=== PATIENT | female | born 1955 | race Caucasian/White ===

== ENCOUNTER 2023-05-12 12:49 | Outpatient (OUT) | payer MEDICARE, SELFPAY ==
--- NOTE | 2023-05-12 12:52 | MM_ITS ---
Patient Name: MARIBEL BLOCK MR#: [id number] : 1955 Exam Date: 05/12/2023 Ordering Doctor: DR JOSSELYN GUDINO M.D. RADIOLOGY REPORT PROCEDURE: MM TOMOSYNTHESIS SCREENING BI COMPARISON: MG MAMM LT DIAG FU, 10/30/2021. MG MAMM DIAGNOSTIC 3D PERRY CAD, 05/10/2022. INDICATIONS: Screening Calculator Name NCI Breast Cancer Risk Assessment Tool 5 Year Breast Cancer Risk 2.60% Lifetime Breast Cancer Risk 8.70% Personal Breast Cancer No Personal Ovarian Cancer No Treatments None Family Cancers Cousin-maternal with breast cancer at age 61; Mother with lung cancer at age 78; Father with lung cancer at age 52; Sister with thyroid cancer at age 38. LOCATION: [facility] BREAST COMPOSITION: Scattered areas fibroglandular density. FINDINGS: DIAGNOSTIC CATEGORY 2--BENIGN FINDING. NO CHANGE FROM COMPARISON. Scattered benign-appearing nodules are present. Scattered benign-appearing calcifications are present. Scattered benign-appearing lymph nodes are present. RIGHT BREAST: No significant suspicious finding. LEFT BREAST: No significant suspicious finding. Stable micro clip marker upper outer quadrant, mid breast RECOMMENDATIONS: ROUTINE MAMMOGRAM AND CLINICAL EVALUATION IN 12 MONTHS. PLEASE NOTE: A NORMAL MAMMOGRAM DOES NOT EXCLUDE THE POSSIBILITY OF BREAST CANCER. A CLINICALLY SUSPICIOUS PALPABLE LUMP SHOULD BE BIOPSIED. Dictated by: Alfa Lewis MD on 05/12/2023 at 14:06 Approved by: Alfa Lewis MD on 05/12/2023 at 14:07
--- NOTE | 2023-05-12 13:11 | CT_ITS ---
[address] [address] Patient Name: MARIBEL BLOCK MRN: [id number] date: 1955 Sex: F Assigned Patient Location: MAMMO Current Patient Location: CT Accession/Order Number: [id number] Exam Date: 05/12/2023 13:12 Report Date: 05/12/2023 14:05 At the request of: JOSSELYN GUDINO Procedure: CT lung screening low-dose EXAMINATION: CT lung screening low-dose HISTORY: Former Smoker Z87.891 COMPARISON: 10/20/2021 TECHNIQUE: Axial, Coronal, and Sagittal images were created without the administration of IV contrast material. Dose reduction techniques were achieved by using automated exposure control and/or adjustment of mA and/or kV according to patient size and/or use of iterative reconstruction technique. FINDINGS: LUNGS: No visible pulmonary disease. PLEURA: No mass, effusion, or pneumothorax. VASCULATURE: No abnormality. ANJANA: No mass or pathologic adenopathy. MEDIASTINUM: No mass or pathologic adenopathy. CARDIAC: No enlargement, pericardial thickening, or significant calcification. CORONARY ARTERIES: AORTA: No aneurysm or dissection. CHEST WALL: No mass or axillary adenopathy BONES: No bone lesion or fracture. LIMITED ABDOMEN: No suspicious findings. Limited images of the upper abdomen. Surgical clips from cholecystectomy OTHER: Negative. CT/CT lung screening low-dose IMPRESSION: LUNG SCREENING: Lung-RADS Category 1 Negative. No nodules and definitely benign nodules. Continue annual screening with LDCT in 12 months. Electronically authenticated by: JAN CARPENTER Date: 05/12/2023 14:05
== END 2023-05-12 12:50 | disposition home or self-care (01) ==
PROVIDERS: PCP Family Medicine; Visit Provider Family Medicine
DX: Z12.31 Encounter for screening mammogram for malignant neoplasm of breast (principal); Z87.891 Personal history of nicotine dependence; Z80.3 Family history of malignant neoplasm of breast; Z80.1 Family history of malignant neoplasm of trachea, bronchus and lung; Z80.8 Family history of malignant neoplasm of other organs or systems
CPT/HCPCS: 71271; 77063; 77067

== ENCOUNTER 2024-05-28 12:49 | Outpatient (OUT) | payer MEDICARE, SELFPAY ==
--- NOTE | 2024-05-28 13:08 | MM_ITS ---
Patient Name: MARIBEL BLOCK MR#: [id number] : 1955 Exam Date: 05/28/2024 Ordering Doctor: MRS. SHEREEN CARBAJAL [employer] RADIOLOGY REPORT PROCEDURE: MM TOMOSYNTHESIS SCREENING BI COMPARISON: MM TOMOSYNTHESIS SCREENING BI, 05/12/2023. MG MAMM DIAGNOSTIC 3D PERRY CAD, 05/10/2022. MG MAMM PERRY SCRN W CAD DIG, 09/25/1998. INDICATIONS: Screening for malignant neoplasm Calculator Name NCI Breast Cancer Risk Assessment Tool 5 Year Breast Cancer Risk 2.60% Lifetime Breast Cancer Risk 8.30% Personal Breast Cancer No Personal Ovarian Cancer No Treatments None Family Cancers Cousin-maternal with breast cancer at age 61; Mother with lung cancer at age 78; Father with lung cancer at age 52; Sister with thyroid cancer at age 38. LOCATION: [facility] BREAST COMPOSITION: There are scattered areas of fibroglandular density. FINDINGS: DIAGNOSTIC CATEGORY 1--NEGATIVE. RIGHT BREAST: No significant suspicious finding. LEFT BREAST: No significant suspicious finding. RECOMMENDATIONS: ROUTINE MAMMOGRAM AND CLINICAL EVALUATION IN 12 MONTHS. PLEASE NOTE: A NORMAL MAMMOGRAM DOES NOT EXCLUDE THE POSSIBILITY OF BREAST CANCER. A CLINICALLY SUSPICIOUS PALPABLE LUMP SHOULD BE BIOPSIED. Dictated by: Rey Li DO on 05/28/2024 at 15:43 Approved by: Rey Li DO on 05/28/2024 at 15:47
--- NOTE | 2024-05-28 13:12 | CT_ITS ---
The [address] [address] Patient Name: MARIBEL BLOCK MRN: [id number] date: 1955 Sex: F Assigned Patient Location: CT Current Patient Location: CT Accession/Order Number: [id number] Exam Date: 05/28/2024 14:26 Report Date: 05/28/2024 14:44 At the request of: SHEREEN CARBAJAL Procedure: CT lung screening low-dose LOW-DOSE SCREENING CHEST CT WITHOUT CONTRAST COMPARISON: 05/12/2023 CLINICAL DATA: Former smoker Spiral axial unenhanced low-dose images were obtained through the chest. Images were reviewed using both narrow and wide window settings. This CT exam was performed using one or more following dose reduction techniques: Automated exposure control, adjustment of the mA and/or kV according to patient size, or use of iterative reconstruction technique. The heart is within normal limits for size. No pericardial effusion is present. Minor coronary artery disease is seen. There is no aortic aneurysm. There is small amount of plaque at the aortic arch and descending aorta. There are a few small nonpathologic mediastinal lymph nodes. The left thyroid lobe is either asymmetrically small or surgically absent. Endplate spurring is present at the spine. There is minimal linear scarring or atelectasis at the lower lungs. No focal consolidation, pleural effusion or pneumothorax is seen. Scattered tiny nodular densities measuring under 4 mm in size are again seen. No developing pulmonary nodularity is noted. Limited cuts through the upper abdomen show no contributory findings. CT/CT lung screening low-dose IMPRESSION: MINOR ATELECTASIS AND/OR SCARRING. TINY SIMILAR PULMONARY NODULES. NO NEW ABNORMALITIES. Lung RADS category 2 - benign Twelve-month low-dose CT follow-up suggested. Impression dictated by: Kristi Guzmán M.D.05/28/2024 2:44 PM Dictation Location: [place] [address] Electronically authenticated by: [id number] Y Date: 05/28/2024 14:44
--- OUTSIDE RECORDS SUMMARY | 2024-05-28 13:12 | XMS_ITS | CCD ---
Author Organization [facility] Care Team Providers Care Online Media Director Name Role Phone NUSRAT PITTMAN Referring Unavailable Unavailable Primary Care Provider UnavailKelli Morales Primary Care Physician SHAHAB, DR ARCOS Admitting Unavailable SHAHAB, DR ARCOS Attending Unavailable SHAHAB, DR ARCOS Primary Care Unavailable SHAHAB, DR ARCOS Consulting Unavailable Zieber, DR Frazier Consulting Unavailable SHAHAB, DR ARCOS Admitting Unavailable SHAHAB, DR ARCOS Attending Unavailable SHAHAB, DR ARCOS Consulting Unavailable Zieber, DR Frazier Consulting Unavailable SHAHAB, DR ARCOS Admitting Unavailable SHAHAB, DR ARCOS Attending Unavailable SHAHAB, DR ARCOS Consulting Unavailable Zieber, DR Frazier Consulting Unavailable ROBUCK, Stephanie E Primary Care Physician [phone] Monica Gudino MD Unavailable Monica Gudino MD Primary Care Provider ROBUCK, Stephanie E Attending Unavailable ROBUCK, Stephanie E Admitting Unavailable ROBUCK, Stephanie E Attending Unavailable ROBUCK, Stephanie E Admitting Unavailable ROBUCK, Stephanie E Attending Unavailable ROBUCK, Stephanie E Attending Unavailable ROBUCK, Stephanie E Attending Unavailable ROBUCK, Stephanie E Attending Unavailable ROBUCK, Stephanie E Admitting Unavailable Alfredo Ramirez MD Unavailable SHEREEN PRESSLEY Attending Unavailable MONICA GUDINO Attending Unavailable MONICA GUDINO Attending Unavailable Allergies Allergy Classification Reported Allergen(s) Allergy Type Date of Onset Reaction(s) Facility (1 source) Acetaminophen / oxyCODONE Drug Allergy 9 Other (See Comments) Inside (9 sources) Aluminum aspirin; Translations: [aspirin] Drug Allergy 9 Other (See Comments), Headache [place] (8 sources) Meperidine Drug Allergy 9 Other (See Comments), Unknown [place] (1 source) Penicillins Propensity to adverse reactions to drug 9 Hives [place] (7 sources) Aspirin; Translations: [aspirin] Drug Allergy Headache (finding) [facility] (15 sources) oxyCODONE; Translations: [oxycodone] Drug Allergy 3 Headache (finding), Headache [facility] (8 sources) Penicillin; Translations: [penicillin] Drug Allergy Eruption (morphologic abnormality) [facility] (1 source) Acetaminophen / oxyCODONE Drug Allergy 4 [facility] (1 source) Aspirin Drug Allergy 4 [facility] (1 source) Meperidine Drug Allergy 4 [facility] (1 source) Penicillins Drug allergy (disorder) 4 [facility] (7 sources) Penicillins Drug Allergy 3 Rash [facility] Medications Current Medications Medication Drug Class(es) Dates Sig (Normalized) Sig (Original) 12 hr buPROPion hydrochloride 100 mg extended release oral tablet (9 sources) Aminoketone Start: 04-05-2023 End: 03-20-2025 take 1 tablet by mouth every twelve hours in the morning buPROPion SR (Wellbutrin SR) 100 MG 12 hr tablet Indications: Other fatigue , Lack of motivation Take 1 tablet (100 mg) by mouth in the morning and 1 tablet (100 mg) before bedtime. Do not crush, chew, or split.. 200 tablet 3 02/14/2024 03/20/2025 Active cholecalciferol 0.125 mg oral capsule (7 sources) Vitamin D take 1 capsule by mouth in the morning cholecalciferol (Vitamin D-3) 125 MCG (5000 UT) capsule Take 5,000 Units by mouth in the morning. Active ciclesonide 0.05 mg/actuat metered dose nasal spray (1 source) Start: 01-20-2023 ciclesonide nasal 50 mcg/inh Spra 2 spray(s), Nasal, Daily, 3 EA, Refill(s) 3, [facility], 169, cm, 01/20/23 13:59:00 EDT, Height/Length Dosing, 139.6, kg, 01/20/23 13:59:00 EDT, Weight Dosing Start Date: 01/20/23 Status: Ordered fluticasone propionate 0.05 mg/actuat metered dose nasal spray (9 sources) Corticosteroid Start: 02-03-2023 take 2 spray(s) nasal route once daily fluticasone Nasal 0.05 mg/inh Remer 2 spray(s), Nasal, Daily, 3 EA, Refill(s) 3, each nostril, [facility], 169, cm, 01/20/23 13:59:00 EDT, Height/Length Dosing, 139.6, kg, 01/20/23 13:59:00 EDT, Weight Dosing Start Date: 02/03/23 Status: Ordered take 1 spray(s) nasa l route in the morning fluticasone (Flonase) 50 MCG/ACT nasal spray Administer 1 spray into each nostril in the morning. Shake gently. Before first use, prime pump. After use, clean tip and replace cap.. Active furosemide 20 mg oral tablet (2 sources) Loop Diuretic Start: 04-05-2023 End: 04-04-2024 take 1 tablet by mouth in the morning furosemide (Lasix) 20 MG tablet Indications: Bilateral edema of lower extremity Take 1 tablet (20 mg) by mouth in the morning and 1 tablet (20 mg) before bedtime. 60 tablet 04/05/2023 04/04/2024 Active hydroCHLOROthiazide 25 mg / losartan potassium 100 mg oral tablet (17 sources) Thiazide Diuretic, Angiotensin 2 Receptor Oz Start: 11-25-2022 End: 03-20-2025 take 1 tablet by mouth once daily losartan-hydroCHL OROthiazide (Hyzaar) 100-25 MG tablet Indications: Essential hypertension (CMS/HCC) Take 1 tablet by mouth Daily 100 tablet 3 02/14/2024 03/20/2025 Active Start: 09-14-2022 End: 09-14-2023 take 1 tablet by mouth in the morning losartan-hydroCHLOROthiazide (Hyzaar) 10 0-25 MG tablet Indications: Essential hypertension (CMS/HCC) Take 1 tablet by mouth in the morning. 360 tablet 0 09/14/2022 09/14/2023 Active Start: 08-31-2019 hydrochlorothi azide-losartan 12.5 mg-50 mg Tab 1 tab(s), Oral, Daily, 30 tab(s), Refill(s) 0 Start Date: 08/31/19 Status: Ordered Start: 11-13-2018 losartan-hydro chlorothiazide (HYZAAR) 100-25 MG per tablet Juice Plus (2 sources) Start: 03-10-2020 Juice Plus Jui ce Plus Start Date: 03/10/20 Status: Ordered levothyroxine sodium 0.1 mg oral tablet (14 sources) l-Thyroxi ne Start: 11-22-2023 take 1 tablet by mouth once daily Synthroid 100 mcg Tab 100 mcg = 1 tab(s), Oral, Daily, # 90 tab(s), Refills(s) 4, Pharmacy: [facility], 169, cm, 11/22/23 13:50:00 EDT, Height/Length Dosing, 138.2, kg, 11/22/23 13:50:00 EDT, Weight Dosing Start Date: 11/22/23 Status: Ordered Start: 11-29-2022 take 1 tablet by evelyne th once daily Synthroid 100 mcg Tab 100 mcg = 1 tab(s), Oral, Daily, # 90 tab(s), Refills(s) 3, Pharmacy: [facility], 169, cm, 11/25/22 13:56:00 EDT, Height/Length Dosing, 139.8, kg, 11/25/22 13:56:00 EDT, Weight Dosing Start Date: 11/29/22 Status: Ordered Start: 05-25-2022 take 1 tablet by evelyne th once daily Synthroid 100 mcg Tab 100 mcg = 1 tab(s), Oral, Daily, # 90 tab(s), Refills(s) 3, Pharmacy: [facility], 169, cm, 05/20/22 13:40:00 EST, Height/Length Dosing, 135, kg, 05/20/22 13:40:00 EST, Weight Dosing Start Date: 05/25/22 Status: Ordered Start: 05-13-2021 take 1 tablet by evelyne th once daily Synthroid 100 mcg Tab 100 mcg = 1 tab(s), Oral, Daily, # 90 tab(s), Refills(s) 3, Pharmacy: [facility], 169, cm, 05/13/21 11:15:00 EST, Height/Length Dosing, 131.9, kg, 05/13/21 11:15:00 EST, Weight Dosing Start Date: 05/13/21 Status: Ordered Start: 05-13-2021 take 1 tablet by evelyne th once daily Synthroid 100 mcg Tab 100 mcg = 1 tab(s), Oral, Daily, # 90 tab(s), Refills(s) 3, Pharmacy: [facility], 169, cm, 05/13/21 11:15:00 EST, Height/Length Dosing, 131.9, kg, 05/13/21 11:15:00 EST, Weight Dosing Start Date: 05/13/21 Status: Ordered magnesium oxide 500 mg oral tablet (7 sources) Start: 05-13-2021 take 1 tablet by mouth once daily magnesium oxide 500 mg oral tablet 500 mg = 1 tab(s), Oral, Daily, Refills(s) 0 Start Date: 05/13/21 Status: Ordered Non-Formulary Medication (2 sources) Start: 05-13-2021 Non-Formulary Medication 1000 mg 2 tablets bid Start Date: 05/13/21 Status: Ordered NONFORMULARY (1 source) NONFORMULARY Indications: Juice Plus Indications: Juice Plus 0 Active omeprazole 40 mg delayed release oral capsule (9 sources) Proton Pump Inhibitor Start: 05-05-2023 End: 05-04-2024 omeprazole (PriLOSEC) [address] capsule Indications: Gastroesophageal reflux disease without esophagitis TAKE 1 CAPSULE IN THE MORNING BEFORE A MEAL. DO NOT CRUSH OR CHEW 100 capsule 3 04/16/2024 Active 24 hr oxybutynin chloride 10 mg extended release oral tablet (12 sources) Cholinergic Muscarinic Antagonist Start: 11-22-2023 take 2 tablets by mouth once daily oxybutynin 10 mg ER Tab 20 mg = 2 tab(s), Oral, Daily, # 180 tab(s), Refills(s) 4, Pharmacy: [facility], 169, cm, 11/22/23 13:50:00 EDT, Height/Length Dosing, 138.2, kg, 11/22/23 13:50:00 EDT, Weight Dosing Start Date: 11/22/23 Status: Ordered Start: 01-20-2023 take 1 tablet by evelyne th once daily oxybutynin 10 mg ER Tab 10 mg = 1 tab(s), Oral, Daily, # 90 tab(s), Refills(s) 3, Pharmacy: [facility], 169, cm, 01/20/23 13:59:00 EDT, Height/Length Dosing, 139.6, kg, 01/20/23 13:59:00 EDT, Weight Dosing Start Date: 01/20/23 Status: Ordered Start: 01-20-2023 take 1 tablet by evelyne th every twenty-four hours oxybutynin XL (Ditropan-XL) 10 MG 24 hr tablet Take 10 mg by mouth. 01/20/2023 Active Start: 11-25-2022 take 1 tablet by evelyne th once daily oxybutynin 5 mg ER Tab 5 mg = 1 tab(s), Oral, Daily, # 90 tab(s), Refills(s) 0, Pharmacy: [facility], 169, cm, 11/25/22 13:56:00 EDT, Height/Length Dosing, 139.8, kg, 11/25/22 13:56:00 EDT, Weight Dosing Start Date: 11/25/22 Status: Ordered phentermine hydrochloride 37.5 mg oral tablet (1 source) Sympathomimetic Amine Anorectic Start: 07-29-2021 take 1 tablet by mouth once daily Adipex-P 37.5 mg Tab 37.5 mg = 1 tab(s), Oral, Daily, # 30 tab(s), Refills(s) 0, Pharmacy: [facility], 169, cm, 07/29/21 9:29:00 EDT, Height/Length Dosing, 131.9, kg, 07/29/21 9:29:00 EDT, Weight Dosing Start Date: 07/29/21 Status: Ordered potassium chloride 1.33 meq oral tablet (2 sources) Start: 05-13-2021 take 1 tablet by mouth once daily potassium chloride 99 mg oral tablet 99 mg = 1 tab(s), Oral, Daily, # 100 tab(s), Refills(s) 0 Start Date: 05/13/21 Status: Ordered Start: 05-13-2021 take 1 tablet by evelyne once daily potassium chloride 99 mg oral tablet 99 mg = 1 tab(s), Oral, Daily, # 100 tab(s), Refills(s) 0 Start Date: 05/13/21 Status: Ordered spironolactone 25 mg oral tablet (7 sources) Aldosterone Antagonist Start: 10-04-2023 End: 10-03-2024 take 1 tablet by mouth once daily spironolactone (Aldactone) 25 MG tablet Indications: Bilateral edema of lower extremity , Essential hypertension (CMS/HCC) Take 1 tablet (25 mg) by mouth Daily 30 tablet 11 10/04/2023 10/03/2024 Active thyroid (retirement) 180 mg oral tablet (1 source) Start: 11-28-2018 [place] THYROID 180 MG tablet 24 hr tolterodine tartrate 4 mg extended release oral capsule (1 source) Cholinergic Muscarinic Antagonist Start: 01-11-2019 take 1 capsule by mouth once daily tolterodine (DETROL LA) 4 MG extended release capsule Indications: Urgency incontinence Take 1 capsule by mouth daily 30 capsule 12 01/11/2019 Active Triamcinolone (1 source) Corticosteroid Start: 06-24-2021 triamcinolone Top 0.1% Crm 30 gram 1 jillian, Topical, TID, 30 gm, Refill(s) 3, [facility], 169, cm, 06/24/21 9:25:00 EDT, Height/Length Dosing, 133.4, kg, 06/24/21 9:25:00 EDT, Weight Dosing Start Date: 06/24/21 Status: Ordered Turmeric extract (1 source) Start: 05-13-2021 take 1 mg by mouth once daily Turmeric mg, Oral, Daily, Refill(s) 0 Start Date: 05/13/21 Status: Ordered vitamin b12 0.5 mg oral tablet (8 sources) Vitamin B12 take 1 tablet by mouth in the morning cyanocobalamin (Vitamin B-12) 500 MCG tablet Take 1 tablet by mouth in the morning. Active Cyanocobalamin ( VITAMIN B-12) 2500 MCG SUBL Indications: take [address] 2,500 mcg under the tongue daily Indications: take 5000 once a day 0 Active Vitamin D3 (7 sources) Start: 03-10-2020 Vitamin D3 Ref ills(s) 0 Start Date: 03/10/20 Status: Ordered Completed/Discontinued Medications Medication Drug Class(es) Dates Sig (Normalized) Sig (Original) mecobalamin 5 mg disintegrating oral tablet (1 source) Start: 08-31-2019 take 1 tablet under the tongue once daily Vitamin B12 Methylcobalamin 5000 mcg sublingual tablet 5,000 microgram = 1 tab(s), SubLingual, Daily, Refills(s) 0 Start Date: 08/31/19 Status: Ordered Vitamin B12 Methylcobalamin 5000 mcg sublingual tablet (6 sources) Start: 08-31-2019 take 1 tablet under the tongue once daily Vitamin B12 Methylcobalamin 5000 mcg sublingual tablet 5,000 microgram = 1 tab(s), SubLingual, Daily, Refills(s) 0 Start Date: 08/31/19 Status: Ordered Problems Active Problems Problem Classification Problem Date Documented Date Episodic/Chronic Adjustment disorders (11 sources) Adjustment disorder with anxious mood; Translations: [Adjustment disorder with anxiety] Onset: 09-14-2022 Resolved: 05-10-2024 05-05-2023 Chronic Coma; stupor; and brain damage (9 sources) Daytime somnolence; Translations: [Somnolence] Onset: 02-14-2024 Resolved: 05-10-2024 02-14-2024 Episodic Coronary atherosclerosis and other heart disease (18 sources) Calcification of coronary artery; Translations: [Atherosclerotic heart disease of tangirnaq coronary artery without angina pectoris] Onset: 04-04-2023 03-10-2020 Chronic Esophageal disorders (2 sources) Gastroesophageal reflux disease without esophagitis; Translations: [Gastro-esophageal reflux disease without esophagitis] 05-05-2023 Chronic Essential hypertension (20 sources) Essential hypertension; Translations: [Essential (primary) hypertension] Onset: 07-29-2021 Chronic Malaise and fatigue (11 sources) Fatigue; Translations: [Other fatigue] Onset: 04-04-2023 04-04-2023 Episodic Menopausal disorders (11 sources) Decreased estrogen level; Translations: [Other primary ovarian failure] Onset: 04-04-2023 05-05-2023 Chronic Nutritional deficiencies (2 sources) Vitamin D deficiency; Translations: [Vitamin D deficiency, unspecified] 05-05-2023 Chronic Nutritional deficiencies (2 sources) Cobalamin deficiency; Translations: [Deficiency of other specified B group vitamins] 05-05-2023 Episodic Other connective tissue disease (1 source) Spasm; Translations: [Cramp and spasm] Onset: 07-29-2021 Episodic Other connective tissue disease (13 sources) Cramp in lower limb; Translations: [Cramp and spasm] Onset: 04-04-2023 07-29-2021 Episodic Other connective tissue disease (9 sources) Muscle pain; Translations: [Myalgia, unspecified site] Onset: 04-05-2023 04-05-2023 Episodic Other diseases of bladder and urethra (18 sources) Overactive bladder; Translations: [Overactive bladder] Onset: 04-04-2023 08-31-2019 Chronic Other diseases of bladder and urethra (3 sources) Detrusor overactivity; Translations: [Overactive bladder] Onset: 11-25-2022 Chronic Other hematologic conditions (7 sources) Hematocrit - PCV - high; Translations: [Other abnormality of red blood cells] Onset: 10-04-2023 10-04-2023 Episodic Other nervous system disorders (11 sources) Thoracic outlet syndrome; Translations: [Brachial plexus disorders] Onset: 04-04-2023 05-05-2023 Chronic Other nervous system disorders (9 sources) Disorder of muscle; Translations: [Myopathy, unspecified] Onset: 04-05-2023 04-05-2023 Chronic Other nutritional; endocrine; and metabolic disorders (20 sources) Body mass index 40+ - severely obese; Translations: [Body mass index (BMI) 45.0-49.9, adult] Onset: 07-29-2021 Chronic Other nutritional; endocrine; and metabolic disorders (20 sources) Morbid obesity; Translations: [Morbid (severe) obesity due to excess calories] Onset: 07-29-2021 Chronic Other nutritional; endocrine; and metabolic disorders (11 sources) Hypercalcemia; Translations: [Hypercalcemia] Onset: 04-04-2023 05-05-2023 Chronic Other screening for suspected conditions (not mental disorders or infectious disease) (20 sources) Other abnormal and inconclusive findings on diagnostic imaging of breast; Translations: [Encounter for screening mammogram for malignant neoplasm of breast] Onset: 10-22-2021 Episodic Other skin disorders (11 sources) Cyst of skin; Translations: [Follicular cyst of the skin and subcutaneous tissue, unspecified] Onset: 04-04-2023 03-10-2020 Episodic Other skin disorders (11 sources) Loss of hair; Translations: [Nonscarring hair loss, unspecified] Onset: 04-04-2023 03-10-2020 Episodic Other skin disorders (1 source) Follicular cysts of skin and subcutaneous tissue; Translations: [Follicular cyst of the skin and subcutaneous tissue, unspecified] Onset: 05-20-2022 Episodic Other upper respiratory disease (13 sources) Allergic rhinitis; Translations: [Allergic rhinitis, unspecified] Onset: 01-20-2023 Chronic Other upper respiratory disease (9 sources) Seasonal allergy; Translations: [Other seasonal allergic rhinitis] Onset: 04-04-2023 04-04-2023 Chronic Residual codes; unclassified (2 sources) Bruises easily 03-10-2020 Episodic Residual codes; unclassified (11 sources) Bilateral lower limb edema; Translations: [Localized edema] Onset: 04-05-2023 05-05-2023 Episodic Residual codes; unclassified (11 sources) Low motivation; Translations: [Other specified personal risk factors, not elsewhere classified] Onset: 04-05-2023 Resolved: 05-10-2024 04-05-2023 Episodic Screening and history of mental health and substance abuse codes (2 sources) Tobacco use and exposure - finding 03-10-2020 Chronic Screening and history of mental health and substance abuse codes (20 sources) Personal history of nicotine dependence; Translations: [Ex-smoker] Onset: 10-20-2021 Episodic Thyroid disorders (20 sources) Hypothyroidism; Translations: [Hypothyroidism, unspecified] Onset: 05-20-2022 03-10-2020 Chronic Past or Other Problems Problem Classification Problem Date Documented Date Episodic/Chronic Coagulation and hemorrhagic disorders (7 sources) Easy bruising; Translations: [Spontaneous ecchymoses] Onset: 04-04-2023 04-04-2023 Episodic Genitourinary symptoms and ill-defined conditions (10 sources) Urine screening abnormal; Translations: [Unspecified abnormal findings in urine] Onset: 11-25-2022 Episodic Mood disorders (7 sources) Mood disorders Onset: 05-05-2023 05-05-2023 Residual codes; unclassified (1 source) Family history of malignant neoplasm of breast; Translations: [FAMILY HX MALIG NEOPLASM OF BREAST] Onset: 10-22-2021 Episodic Residual codes; unclassified (1 source) Family history of malignant neoplasm of trachea, bronchus and lung; Translations: [FAM HX MALIG NEOPLSM TRACH BRON LNG] Onset: 10-22-2021 Episodic Residual codes; unclassified (1 source) Family history of malignant neoplasm of other organs or systems; Translations: [FAM HX MALIG NEOPLASM OTH ORGN/SYS] Onset: 10-22-2021 Episodic Residual codes; unclassified (7 sources) Edema; Translations: [Edema, unspecified] Onset: 04-04-2023 04-04-2023 Episodic Unclassified (5 sources) Patient encounter status; Translations: [Women's annual routine gynecological examination] 05-13-2021 Results Test Name Value Interpretation Reference Range Facility Family Medicine Office/Clini c Noteon 11-23-2023 Family Medicine Office/Clinic Note Family Medicine Office/Clinic Note Chief Complaint 10 mo f/u HPI Staff OAB - Pt states she takes the Oxybutynin daily, she still has bladder leakage but not as bad. Pt is asking if a higher dose is available. Patient is here for follow up on Thyroid Disease. Are you compliant with your medications? Yes Do you have side effects from the medication? No Last TSH - TSH: 2.23 mcIU/mL 11/25/22 Do you have any of the following symptoms? Change in energy level? no Weight change? no Heat/cold intolerance? no Hair/skin/nail changes? Losing hair Change in bowels? no Pt states she feels well and she has no concerns. Cologuard - Neg Apr 2021 per pt. Mamm - 05/10/[address] Gudino orders this. Lipids - 05/21/21 Total - 187 Trigs - 76 HDL - 79 LDL - 92 BMP - 11.25.22 The standard range for ages 18 and older is >=18.5 and < 25 kg/m2. Your BMI today was above this range, this falls in the overweight to obese category and there are medical benefits to weight loss. We can offer counselling, referral, and/or medical support in addressing this problem. Your BMI and weight management will be followed at subsequent visits. History of Present Illness The patient or their guardian verbally consented to allow Rcbob Chaim Maher to record this visit. Jeniffer is a 68-year-old female here today for a yearly follow-up of hypertension, hypothyroidism, and overactive bladder. Her oxybutynin is working very well. It still is, but she has some mild incontinence going on again. Down 3 pounds compared to 01/2023 visit. Is requesting increase of dose. Remains compliant with her blood pressure medications including losartan hydrochlorothiazide, and Aldactone. She does see a separate PCP for management of her hypertension. I did refill her losartan hydrochlorothiazide last time as she needed it refilled. She is asking me for, to refill it again. She does not check blood pressures at home. In regards to her thyroid, she continues on levothyroxine 100 mcg daily. Is having some hair loss, but otherwise denies other thyroid symptoms including no fatigue or weight gain. No hot or cold intolerances. Overall, she is feeling well, has no concerns or complaints today. She does not smoke. Review of Systems PHQ Score Initial Depression Screen Score: 0 SCORE All other systems are negative except as stated in the HPI. Physical Exam Vitals & Measurements HR: 82(Peripheral) BP: 135/77 SpO2: 96% HT: 67 in HT: 169.0 cm WT: 138.2 kg WT: 304.04 lb BMI: 48.39 General: Well developed, well nourished, in no acute distress. Obese, down 3 pounds. Neck supple, no masses, no cervical adenopathy. Lungs: Normal respiratory effort and clear to auscultation. Cardio: Regular rate and rhythm, normal S1 and S2, no murmur, no rub. Neurologic: Grossly normal. Lymph Nodes: No cervical adenopathy, nodes normal. No bilateral lower extremity edema Mental Status: Alert and oriented x3. Normal mood and affect. Assessment/Plan 1. Hypertension (I10: Essential (primary) hypertension) Blood pressure is controlled today. Losartan-hydrochlorothi azide will be refilled. She will continue Aldactone. DASH diet and weight loss encouraged. A BMP will be obtained today. 2. Hypothyroidism (E03.9: Hypothyroidism, unspecified) An updated TSH will be obtained today. Levothyroxine refilled. Follow up in 6 months. 3. Overactive bladder (N32.81: Overactive bladder) This is partially controlled. Oxybutynin will be increased to 20 mg daily. Prescription sent. Follow up in 6 months, sooner if needed. She is not interested in a urology referral at this time. 4. Adult BMI 45.0-49.9 kg/sq m (Z68.42: Body mass index [BMI] 45.0-49.9, adult) Discussed health risks of obesity Encourage healthy, balanced diet low in sugar, fat, carbs Encouraged exercise regimen. 5. Severe obesity (BMI >= 40) (E66.01: Morbid (severe) obesity due to excess calories) BMI is 45+ kg/m2. ATTESTATION: Documentation services were performed after patient or guardian consented to allow Marixa maher to record this visit. BAILEY specialist employee labor relations and provider reviewed before signing. BAILEY: Elizabeth Henson. Follow-up With When Contact Information Stephanie KOWALSKI CNP In 6 months [address] [place] [address]- Additional Instructions: Problem List/Past Medical History Ongoing Adult BMI 45.0-49.9 kg/sq m Calcification of coronary artery Hypertension Hypothyroidism Overactive bladder Severe obesity (BMI >= 40) Historical Body mass index 45.0-49.9, adult Procedure/Surgical History Bilateral thoracic outlet syndrome, Cholecystectomy, Colonoscopy, Partial lobectomy of thyroid, Umbilical hernia. Medications fluticasone Nasal 0.05 mg/inh Remer, 2 spray(s), Nasal, Daily, 3 refills hydrochlorothiazide-los estephania 25 mg-100 mg Tab, 1 tab(s), Oral, Daily, 4 refills magnesium oxide 500 mg oral tablet, 500 mg= 1 tab(s), Oral, Daily omeprazole 40 mg Cap-DR, 40 mg= 1 (more content not included)... Normal [facility] Comment on above: Result Comment: Elec tronically Signed By: Stephanie KOWALSKI CNP\.br\Date and Time Signed: 11/23/23 11:38 EDT\.br\Electronically Co-Signed By: Elizabeth Hensno\.br\Date and Time Co-Signed: 11/22/23 17:20 EDT Ambulatory Visit Summaryon 0 11-22-2023 Ambulatory Visit Summary Ambulatory Visit Summary MARIBEL SWIFT :1955 Visit Date:11/22/2023 Ambulatory Visit Instructions Your Diagnosis Hypertension Hypothyroidism Overactive bladder Adult BMI 45.0-49.9 kg/sq m Severe obesity (BMI >= 40) Your Care Team Attending Physician - Stephanie KOWALSKI CNP Primary Care Physician - Stephanie KOWALSKI CNP This Is Your Medications List levothyroxine (Synthroid 100 mcg Tab) oxybutynin (oxybutynin 10 mg ER Tab) Contact prescribing physician if questions or concerns cholecalciferol (Vitamin D3) fluticasone nasal (fluticasone Nasal 0.05 mg/inh Remer) hydrochlorothiazide-los estephania (hydrochlorothiazide-lo sartan 25 mg-100 mg Tab) magnesium oxide (magnesium oxide 500 mg oral tablet) methylcobalamin (Vitamin B12 Methylcobalamin 5000 mcg sublingual tablet) omeprazole (omeprazole 40 mg Cap-DR) spironolactone (spironolactone 25 mg Tab) Procedures Performed Bilateral thoracic outlet syndrome, Cholecystectomy, Colonoscopy, Partial lobectomy of thyroid, Umbilical hernia. Discharge Vitals Heart Rate (Peripheral) 82 Blood Pressure 135/77 Height 169.0 cm Height 67 in Weight 138.2 kg Weight 304.04 lb BMI 48.39 What to do next You Need to Schedule the Following Appointments Follow Up with Stephanie KOWALSKI CNP When: In 6 months Where: [address] [place] [address]- Medications What How Much When Why Instructions Changed oxybutynin (oxybutynin 10 mg ER Tab) 2 Tablets By Mouth Every [facility] Unchanged levothyroxine (Synthroid 100 mcg Tab) 1 Tablets By Mouth Every day Hypothyroidism Pickup at [facility] Unchanged cholecalciferol (Vitamin D3) Contact prescribing physician if questions or concerns Unchanged fluticasone nasal (fluticasone Nasal 0.05 mg/ inh Remer) 2 Sprays Nasal Inhalation Every day each nostril Contact prescribing physician if questions or concerns Unchanged hydrochlorothiazide-los estephania (hydrochlorothiazide-lo sartan 25 mg-100 mg Tab) 1 Tablets By Mouth Every day Contact prescribing physician if questions or concerns Unchanged magnesium oxide (magnesium oxide 500 mg oral tablet) 1 Tablets By Mouth Every day Contact prescribing physician if questions or concerns Unchanged methylcobalamin (Vitamin B12 Methylcobalamin 5000 mcg sublingual tablet) 1 Tablets Sublingual Every day Contact prescribing physician if questions or concerns Unchanged omeprazole (omeprazole 40 mg Cap-DR) 1 Capsules By Mouth Every day Contact prescribing physician if questions or concerns Unchanged spironolactone (spironolactone 25 mg Tab) 1 Tablets By Mouth Every day Contact prescribing physician if questions or concerns Pharmacy Information [facility]: [address] [place] [address] JENN Hernandez [phone] Allergies aspirin (Headache) oxyCODONE (Headache) penicillin (Rash) Problems Ongoing - Any problem that you are currently receiving treatment for. Adult BMI 45.0-49.9 kg/sq m Calcification of coronary artery Hypertension Hypothyroidism Overactive bladder Severe obesity (BMI >= 40) Historical - Any problem that you are no longer receiving treatment for. Body mass index 45.0-49.9, adult Patient Survey You may receive a survey via text or e-mail asking about your office visit. Please share your experience with us by completing your survey. We appreciate your feedback and thank you for choosing us for your care. Normal [facility] BMPon 11-22-2023 Anion gap [Moles/Vol] 11 mmol/L Normal 6-16 [facility] Comment on above: Performed By: #### 2 [id number] #### [facility] [address] [place] [address] Calcium [Mass/Vol] 9.9 mg/dL Normal 8.9-11.1 [facility] Comment on above: Performed By: #### 2 [id number] #### [facility] [address] [place] [address] Chloride [Moles/Vol] 100 mmol/L Low 101-111 [facility] Comment on above: Performed By: #### 2 [id number] #### [facility] [address] [place] [address] CO2 [Moles/Vol] 31 mmol/L Normal 21-31 [facility] Comment on above: Performed By: #### 2 [id number] #### [facility] [address] [place] [address] Creatinine [Mass/Vol] 0.9 mg/dL Normal 0.5-1.3 [facility] Comment on above: Performed By: #### 2 [id number] #### [facility] [address] [place] [address] Glucose [Mass/Vol] 99 mg/dL Normal 55-199 [facility] Comment on above: Performed By: #### 2 [id number] #### [facility] [address] [place] [address] Potassium [Moles/Vol] 3.8 mmol/L Normal 3.5-5.3 [facility] Comment on above: Performed By: #### 2 [id number] #### [facility] [address] [place] [address] Sodium [Moles/Vol] 138 mmol/L Normal 135-145 [facility] Comment on above: Performed By: #### 2 [id number] #### [facility] [address] [place] [address] Urea nitrogen [Mass/Vol] 15 mg/dL Normal 5-21 [facility] Comment on above: Performed By: #### 2 [id number] #### [facility] [address] [place] [address] Urea nitrogen/Creatinine [Mass ratio] 17 No Units Normal 10-20 [facility] Comment on above: Performed By: #### 2 [id number] #### [facility] [address] [place] [address] CHEMISTRYOrdered By: SYSTEM SYSTEM on 11-22-2023 Anion gap [Moles/Vol] 11 mmol/L Normal 6 - 16 mEq/L [facility] Calcium [Mass/Vol] 9.9 mg/dL Normal 8.9 - 11. 1 mg/dL [facility] Chloride [Moles/Vol] 100 mmol/L Low 101 - 1 11 mmol/L [facility] CO2 [Moles/Vol] 31 mmol/L Normal 21 - 31 mmol/L [facility] Creatinine [Mass/Vol] 0.9 mg/dL Normal 0.5 - 1.3 mg/dL [facility] eGFR 69 mL/min/1.73 m2 Normal >=59mL/min /1. 73 m2 [facility] Glucose [Mass/Vol] 99 mg/dL Normal 55 - 199 mg/dL [facility] Potassium [Moles/Vol] 3.8 mmol/L Normal 3.5 - 5.3 mmol/L [facility] Sodium [Moles/Vol] 138 mmol/L Normal 135 - 145 mmol/L [facility] TSH Qn 2.81 m[IU]/L Normal 0.34 - 5.60 mcIU/mL [facility] Urea nitrogen [Mass/Vol] 15 mg/dL Normal 5 - 21 mg/dL [facility] Urea nitrogen/Creatinine [Mass ratio] 17 mg/mg Normal 10 - 20 [facility] TSH With T4fr Reflexon 11-21 TSH Qn 2.81 m[IU]/L Normal 0.34-5.60 [facility] Comment on above: Performed By: #### 1 [id number] #### [facility] [address] [place] [address] eGFRon 11-22-2023 eGFR 69 mL/min/1.73 m2 Normal >=59 [facility] Comment on above: Order Comment: Order added by Discern Expert. Performed By: #### 1 [id number] #### [facility] [address] [place] [address] Family Medicine Office/Clini c Noteon 01-24-2023 Family Medicine Office/Clinic Note Chief Complaint OAB f/u HPI Staff OAB - Oxybutynin 5 mg initiated. Pt states her OAB is a lot better than what is was. She is wondering what side effect the Oxybutynin could possibly cause. Pt states she has been feeling well and has no other concerns. Cologuard - Neg Apr 2021 per pt. Mamm - 05/10/2022 Cat 2 Lipids - 05/21/21 Total - 187 Trigs - 76 HDL - 79 LDL - 92 BMP - 0824.23 The standard range for ages 18 and older is >=18.5 and < 25 kg/m2. Your BMI today was above this range, this falls in the overweight to obese category and there are medical benefits to weight loss. We can offer counselling, referral, and/or medical support in addressing this problem. Your BMI and weight management will be followed at subsequent visits. History of Present Illness Maribel Swift is a 67-year-old female who presents today for a 2-month follow-up of overactive bladder. At her last visit, we did obtain labs and her thyroid came back normal. I started her on oxybutynin for overactive bladder. She tried and failed Myrbetriq and Detrol in the past. Overactive bladder is much better. She is feeling well and has no concerns. She does question though with her nasal spray if there is a prescription alternative that would be covered, so she is over the counter and she was told her Medicare will not cover it as it is available over the counter now. She uses Flonase once every 2 to 3 weeks. She will use it when her ears start to hurt or if she starts to get a sinus headache. She states that it almost instantaneously scares it. She states that the oxybutynin has helped with her urinary symptoms, but it is not completely. She would like to try a higher dose of oxybutynin. Review of Systems PHQ Score Initial Depression Screen Score: 0 All other systems are negative except as stated in the HPI. Physical Exam Vitals & Measurements HR: 66(Peripheral) BP: 136/85 SpO2: 97% HT: 67 in HT: 169 cm WT: 139.6 kg WT: 307.12 lb BMI: 48.88 General: Obese, in no acute distress. Weight is stable. Lungs: Breathing easy. No conversational dyspnea. Mental Status: Alert and oriented x3. Normal mood and affect. Assessment/Plan The patient already has a Medicare wellness visit scheduled through another provider with another organization. Refuses to schedule with us today. 1. Allergic rhinitis (J30.9: Allergic rhinitis, unspecified) We will prescribe ciclesonide nasal spray to see if that is covered under her Medicare. If not, Flonase at [facility] is cheap. 2. Overactive bladder (N32.81: Overactive bladder) Symptoms greatly improved with oxybutynin. Could be better, so increased to 10 mg. The patient does not want to follow up any sooner than 1 year. 3. Adult BMI 45.0-49.9 kg/sq m (Z68.42: Body mass index [BMI] 45.0-49.9, adult) Discussed health risks of obesity Encouraged healthy balanced diet low in sugar, fat, carbs Encouraged exercise regimen Portions of this record may have been created with voice recognition artificial intelligence software, specifically TinyCo, EverPower and or QuantaSol. Substitutions may have occurred due to the inherent limitations of voice recognition and artificial intelligence software. ATTESTATION: Documentation services were performed after patient or guardian consented to allow [facility] to record this visit. BAILEY specialist employee labor relations and provider reviewed before signing. BAILEY: Hattie Kim Follow-up With When Contact Information Stephanie KOWALSKI CNP In 10 months [address] [place] [address]- Additional Instructions: Patient Education Fall Prevention in the Home, Adult, Gjat-mj-Beqn Obesity, Adult, Rhin-dl-Ysjt Problem List/Past Medical History Ongoing Adult BMI 45.0-49.9 kg/sq m Allergic rhinitis Calcification of coronary artery Hypertension Hypothyroidism Overactive bladder Severe obesity (BMI >= 40) Historical Body mass index 45.0-49.9, adult Procedure/Surgical History Bilateral thoracic outlet syndrome, Cholecystectomy, Colonoscopy, Partial lobectomy of thyroid, Umbilical hernia. Medications ciclesonide nasal 50 mcg/inh Spra, 2 spray(s), Nasal, Daily, 3 refills hydrochlorothiazide-los estephania 25 mg-100 mg Tab, 1 tab(s), Oral, Daily, 4 refills magnesium oxide 500 mg oral tablet, 500 mg= 1 tab(s), Oral, Daily oxybutynin 10 mg ER Tab, 10 mg= 1 tab(s), Oral, Daily, 3 refills Synthroid 100 mcg Tab, 100 mcg= 1 tab(s), Oral, Daily, 3 refills Vitamin B12 Methylcobalamin 5000 mcg sublingual tablet, 5000 mcg= 1 tab(s), SubLingual, Daily Vitamin D3 Allergies aspirin (Headache) oxyCODONE (Headache) penicillin (Rash) Social History Alcohol - Denies Alcohol Use, 05/20/2022 Household alcohol concerns: No., 05/20/2022 Substance Abuse - Denies Substance Abuse, 08/31/2019 Household substance abuse concerns: No., 05/20/2022 Tobacco - Medium Risk, 09/08/2020 Former smoker, quit more than 30 days ago Tobacco Use:. Ne (more content not included)... [facility] Comment on above: Result Comment: Elec tronically Signed By: Stephanie KOWALSKI CNP\.br\Date and Time Signed: 01/24/23 09:57 EDT\.br\Electronically Co-Signed By: Hattie Kim\.br\Date and Time Co-Signed: 01/20/23 17:41 EDT Ambulatory Visit Summaryon 1 Ambulatory Visit Summary MARIBEL SWIFT :1955 Visit Date:01/20/2023 Ambulatory Visit Instructions Your Diagnosis Allergic rhinitis Overactive bladder Adult BMI 45.0-49.9 kg/sq m Your Care Team Attending Physician - Stephanie KOWALSKI CNP Primary Care Physician - Stephanie KOWALSKI CNP This Is Your Medications List ciclesonide nasal (ciclesonide nasal 50 mcg/inh Spra) oxybutynin (oxybutynin 10 mg ER Tab) Contact prescribing physician if questions or concerns cholecalciferol (Vitamin D3) hydrochlorothiazide-los estephania (hydrochlorothiazide-lo sartan 25 mg-100 mg Tab) levothyroxine (Synthroid 100 mcg Tab) magnesium oxide (magnesium oxide 500 mg oral tablet) methylcobalamin (Vitamin B12 Methylcobalamin 5000 mcg sublingual tablet) Procedures Performed Bilateral thoracic outlet syndrome, Cholecystectomy, Colonoscopy, Partial lobectomy of thyroid, Umbilical hernia. Discharge Vitals Heart Rate (Peripheral) 66 Blood Pressure 136/85 Height 169 cm Height 67 in Weight 139.6 kg Weight 307.12 lb BMI 48.88 What to do next Scheduled Follow-Up Appointments Tuesday 2:00 PM EDT With: Stephanie KOWALSKI CNP Where: [facility] Patient Educationon 01-21-20 Patient Education Caregiving Fall Prevention in the Home, Adult Falls can cause injuries and can happen to people of all ages. There are many things you can do to make your home safe and to help prevent falls. Ask for help when making these changes. What actions can I take to prevent falls? General Instructions ? Use good lighting in all rooms. Replace any light bulbs that burn out. ? Turn on the lights in dark areas. Use night-lights. ? Keep items that you use often in usgm-gd-aalzp places. Lower the shelves around your home if needed. ? Set up your furniture so you have a clear path. Avoid moving your furniture around. ? Do not have throw rugs or other things on the floor that can make you trip. ? Avoid walking on wet floors. ? If any of your floors are uneven, fix them. ? Add color or contrast paint or tape to clearly dena and help you see: ? Grab bars or handrails. ? First and last steps of staircases. ? Where the edge of each step is. ? If you use a stepladder: ? Make sure that it is fully opened. Do not climb a closed stepladder. ? Make sure the sides of the stepladder are locked in place. ? Ask someone to hold the stepladder while you use it. ? Know where your pets are when moving through your home. What can I do in the bathroom? ? Keep the floor dry. Clean up any water on the floor right away. ? Remove soap buildup in the tub or shower. ? Use nonskid mats or decals on the floor of the tub or shower. ? Attach bath mats securely with double-sided, nonslip rug tape. ? If you need to sit down in the shower, use a plastic, nonslip stool. ? Install grab bars by the toilet and in the tub and shower. Do not use towel bars as grab bars. What can I do in the bedroom? ? Make sure that you have a light by your bed that is easy to reach. ? Do not use any sheets or blankets for your bed that hang to the floor. ? Have a firm chair with side arms that you can use for support when you get dressed. What can I do in the kitchen? ? Clean up any spills right away. ? If you need to reach something above you, use a step stool with a grab bar. ? Keep electrical cords out of the way. ? Do not use floor ukrainian or wax that makes floors slippery. What can I do with my stairs? ? Do not leave any items on the stairs. ? Make sure that you have a light switch at the top and the bottom of the stairs. ? Make sure that there are handrails on both sides of the stairs. Fix handrails that are broken or loose. ? Install nonslip stair treads on all your stairs. ? Avoid having throw rugs at the top or bottom of the stairs. ? Choose a carpet that does not hide the edge of the steps on the stairs. ? Check carpeting to make sure that it is firmly attached to the stairs. Fix carpet that is loose or worn. What can I do on the outside of my home? ? Use bright outdoor lighting. ? Fix the edges of walkways and driveways and fix any cracks. ? Remove anything that might make you trip as you walk through a door, such as a raised step or threshold. ? Trim any bushes or trees on paths to your home. ? Check to see if handrails are loose or broken and that both sides of all steps have handrails. ? Install guardrails along the edges of any raised decks and porches. ? Clear paths of anything that can make you trip, such as tools or rocks. ? Have leaves, snow, or ice cleared regularly. ? Use sand or salt on paths during winter. ? Clean up any spills in your garage right away. This includes grease or oil spills. What other actions can I take? ? Wear shoes that: ? Have a low heel. Do not wear high heels. ? Have rubber bottoms. ? Feel good on your feet and fit well. ? Are closed at the toe. Do not wear open-toe sandals. ? Use tools that help you move around if needed. These include: ? Canes. ? Walkers. ? Scooters. ? Crutches. ? Review your medicines with your doctor. Some medicines can make you feel dizzy. This can increase your chance of falling. Ask your doctor what else you can do to help prevent falls. Where to find more information ? Centers for Disease Control and Prevention, GIANNIADI: www.cdc.gov ? National [place] on Aging: www.nuvia.nih.gov Contact a doctor if: ? You are afraid of falling at home. ? You feel weak, drowsy, or dizzy at home. ? You fall at home. Summary ? There are many simple things that you can do to make your home safe and to help prevent falls. ? Ways to make your home safe include removing things that can make you trip and installing grab bars in the bathroom. ? Ask for help when making these changes in your home. This information is not intended to replace advice given to you by your health care provider. Make sure you discuss any questions you have with your health care provider. Document Revised: 12/21/2021 Document Reviewed: 10/22/2020 [employer] Patient Education ? 2022 [employer] Skin [employer]. Gastroenterology Obesity, Ad (more content not included)... Normal [facility] Family Medicine Office/Clini c Noteon 11-29-2022 Family Medicine Office/Clinic Note Chief Complaint Est Care HPI Staff Patient is here for follow up on hypertension. How often are you checking your blood pressure? Checks it when ever she thinks about it. What are your average readings? Do you exercise? no Are you compliant with your medications? Yes Do you have side effects from the medication? No Do you have any of the following symptoms? Chest Pain? No Palpitations? No MEHTA/SOB? Sometimes, if she over exerts herself or when its humid out. Headache? No Peripheral Edema? Has swelling in her arms and legs when she wakes up in the am, states the swelling goes down in the evening. Takes her bp med in the morning, is wondering is she should switch this to the evening? Light Headedness? No Patient is here for follow up on Thyroid Disease. Are you compliant with your medications? Yes Do you have side effects from the medication? No Last TSH - TSH: 2.45 mcIU/mL 05/20/22 Do you have any of the following symptoms? Change in energy level? no Weight change? no Heat/cold intolerance? no Hair/skin/nail changes? no Change in bowels? no Pt is c/o cloudy, malodorous urine off and on for about six months, no other sx. Refills - Levothyroxine Cologuard - Neg Apr 2021 per pt. Mamm - 05/10/2022 Cat 2 CMP and Lipids - 2/17/22 Total - 187 Trigs - 76 HDL - 79 LDL - 92 The standard range for ages 18 and older is >=18.5 and < 25 kg/m2. Your BMI today was above this range, this falls in the overweight to obese category and there are medical benefits to weight loss. We can offer counselling, referral, and/or medical support in addressing this problem. Your BMI and weight management will be followed at subsequent visits. History of Present Illness Maribel Swift is a 67-year-old female who presents today to [facility]. She was previously seen at our [facility] office. All the providers left. She lives here in [place], so this is closer for her. She has a history of hypertension and hypothyroidism. She is a smoker. She also sees a family doctor in the [place] area, Dr. Gudino. It is not clear to me yet why she sees 2 family doctors; however, the last [place] office note says that Dr. Gudino manages everything except for thyroid. Looking back at her hypothyroidism, she has been on levothyroxine 100 mcg for years with a stable TSH. TSH on 05/2022 was 2.45 mcIU/mL. Denies fatigue, hair skin or nail changes, temperature intolerances, diarrhea, weight gain. Regarding her hypertension, she takes losartan and hydrochlorothiazide over the counter. She sometimes takes potassium, but no longer taking that consistently. She has not taken it consistently in a year or so. She did have labs on 05/[address] uGdino. She had a CBC, CMP, and lipids, all of which were normal. The thyroid was the only thing checked through [facility] on 05/2022. She does check her blood pressure at home at times, not routinely. She says that the machine always shows green, but she cannot recall what numbers the readings are. She denies any chest pain or palpitations. She does have swelling in her arms and legs when she first wakes up in the morning, but this goes away as she goes about her day. It is never pitting edema. She is complaining of cloudy malodorous urine that has been intermittent for about 6 months. She denies dysuria. She has been trying to lose weight. She states that she has gained 10 to 15 pounds since 05/2022. She denies fatigue, nail, skin, nail changes, heat intolerance or diarrhea. She denies any changes in her diet. Her hair keeps falling out. Her blood pressure is at the borderline. She went to [facility] and she was told that she had the whitecoat syndrome. Her blood pressure varies, and it ranges from 115 to 180 mmHg over 70 to 78 mmHg. She raised concern about her blood pressure as she gets lower reading when she is the one measuring it. She was given a blood pressure medication over a year ago and did not help. She used to smoke in the past, but she stopped smoking around 11 to 12 years ago. Her urine is sometimes cloudy and sometimes stinky. She has had 1 episode of pelvic pain. She took Silver and drank more water, and the pain went away. She denies any urinary frequency. When she urinates, she is not having a full stream. She states that it is weaker stream and other times it just dribbles. She denies any hematuria. She denies any back or flank pain, nausea, vomiting, fever, or chills. She has pain usually when her hips are out. She denies any vaginal issues, but she has urinary incontinence. She denies any vaginal discharge and she is not sexually active. She denies any risk of STDs. She had a Pap smear last year and was told that she did not need it anymore. She has tried Myrbetriq and Detrol in the past, but they did not work. She is agreeable to trying oxybutynin. Review of Systems PHQ Score Initial Depression Screen Score: 0 Physical Exam Vitals & Measurements HR: 73(Peripheral) BP: 128/72 SpO2: 95% HT: 67 i (more content not included)... Normal [facility] Comment on above: Result Comment: Elec tronically Signed By: Stephanie KOWALSKI CNP\.br\Date and Time Signed: 11/29/22 08:59 EDT\.br\Electronically Co-Signed By: Mary Allan\.br\Date and Time Co-Signed: 11/25/22 18:15 EDT BMPon 11-25-2022 Anion gap [Moles/Vol] 11 mmol/L Normal 6-16 [facility] Comment on above: Performed By: #### 1 [id number] #### [facility] [address] [place] [address] Calcium [Mass/Vol] 9.7 mg/dL Normal 8.9-11.1 [facility] Comment on above: Performed By: #### 1 [id number] #### [facility] [address] [place] [address] Chloride [Moles/Vol] 103 mmol/L Normal 101-111 [facility] Comment on above: Performed By: #### 1 [id number] #### [facility] [address] [place] [address] CO2 [Moles/Vol] 29 mmol/L Normal 21-31 [facility] Comment on above: Performed By: #### 1 [id number] #### [facility] [address] [place] [address] Creatinine [Mass/Vol] 0.8 mg/dL Normal 0.5-1.3 [facility] Comment on above: Performed By: #### 1 [id number] #### [facility] [address] [place] [address] Glucose [Mass/Vol] 101 mg/dL Normal 55-199 [facility] Comment on above: Result Comment: If t his glucose result represents a fasting glucose, interpretation should refer to the following reference range: 55-99 mg/dL Performed By: #### 1 [id number], [id number], [id number] #### [facility] [address] [place] [address] Potassium [Moles/Vol] 3.4 mmol/L Low 3.5-5.3 [facility] Comment on above: Performed By: #### 1 [id number], [id number] #### [facility] [address] [place] [address] Sodium [Moles/Vol] 140 mmol/L Normal 135-145 [facility] Comment on above: Performed By: #### 1 [id number], [id number], [id number] #### [facility] [address] [place] [address] Urea nitrogen [Mass/Vol] 20 mg/dL Normal 5-21 [facility] Comment on above: Performed By: #### 1 [id number], [id number] #### [facility] [address] [place] [address] Urea nitrogen/Creatinine [Mass ratio] 25 No Units High 10-20 [facility] Comment on above: Performed By: #### 1 [id number], [id number], [id number] #### [facility] [address] [place] [address] CHEMISTRYOrdered By: SYSTEM SYSTEM on 11-25-2022 Anion gap [Moles/Vol] 11 mmol/L Normal 6 - 16 mEq/L FT Remisol Calcium [Mass/Vol] 9.7 mg/dL Normal 8.9 - 11. 1 mg/dL FT [facility] Chloride [Moles/Vol] 103 mmol/L Normal 101 - 1 11 mmol/L FT Remisol CO2 [Moles/Vol] 29 mmol/L Normal 21 - 31 mmol/L FT Remisol Creatinine [Mass/Vol] 0.8 mg/dL Normal 0.5 - 1.3 mg/dL FT Remisol GFR/1.73 sq M.predicted among non-blacks MDRD (S/P/Bld) [Vol rate/Area] 81 mL/min/1.73 m2 Normal >=59mL/min/1. 73 m2 FT Chem S Glucose [Mass/Vol] 101 mg/dL Normal 55 - 199 mg/dL [facility] Potassium [Moles/Vol] 3.4 mmol/L Low 3.5 - 5.3 mmol/L [facility] Sodium [Moles/Vol] 140 mmol/L Normal 135 - 145 mmol/L FT [facility] TSH Qn 2.23 m[IU]/L Normal 0.34 - 5.60 mcIU/mL [facility] Urea nitrogen [Mass/Vol] 20 mg/dL Normal 5 - 21 mg/dL FT [facility] Urea nitrogen/Creatinine [Mass ratio] 25 mg/mg High 10 - 20 [facility] CHEMISTRYOrdered By: Renita Griffin on 11-25-2022 HbA1c (Bld) [Mass fraction] 5.7 % Normal <=5.9% [facility] ChemAutoSS [id number] 11-25-2022 HbA1c (Bld) [Mass fraction] 5.7 % Normal <=5.9 [facility] Comment on above: Performed By: #### 1 [id number] #### [facility] [address] [place] [address] TSH With T4fr Reflexon 11-25 TSH Qn 2.23 m[IU]/L Normal 0.34-5.60 [facility] Comment on above: Performed By: #### 1 [id number], [id number], [id number], [id number] #### [facility] [address] [place] [address] eGFRon 11-25-2022 GFR/1.73 sq M.predicted among non-blacks MDRD (S/P/Bld) [Vol rate/Area] 81 mL/min/1.73 m2 Normal >=59 [facility] Comment on above: Order Comment: Order added by Discern Expert. Result Comment: Fitness Leader karen kidney disease could be indicated at eGFR's of less than 60 mL/min/1.73m2. Kidney failure is indicated at less than 15 mL/min/1.73m2. Performed By: #### 1 [id number], [id number], [id number] #### [facility] [address] [place] [address] MG MAMM DIAGNOSTIC 3D PERRY CA Don 05-10-2022 MG MAMM DIAGNOSTIC 3D PERRY CAD Patient: MARIBEL SWIFT Exam Date: 05/10/2022 : 1955 Gender:F Ordering : DR MONICA GUDINO M.D. Admission #: [id number] Family : Order #: [id number] CLICK HERE TO VIEW EXAM RADIOLOGY REPORT PROCEDURE: MAMMOGRAM DIAGNOSTIC 3D BILATERAL CAD, 05/10/2022, 12:44 ULTRASOUND BREAST LEFT LIMITED, 05/10/2022, 13:45 COMPARISON: US BREAST LEFT LIMITED, 10/30/2021. MG MAMM LT DIAG FU, 10/30/2021. MG MAMM SCREEN 3D PERRY CAD, 10/20/2021. INDICATIONS: Abnormal findings on diagnostic imaging of breast Calculator Name NCI Breast Cancer Risk Assessment Tool 5 Year Breast Cancer Risk 2.50% Lifetime Breast Cancer Risk 9.00% Personal Breast Cancer No Personal Ovarian Cancer No Treatments None Family Cancers Cousin-maternal with breast cancer at age 61; Mother with lung cancer at age 78; Father with lung cancer at age 52; Sister with thyroid cancer at age 38. LOCATION: [facility] BREAST COMPOSITION: Scattered areas fibroglandular density. FINDINGS: DIAGNOSTIC CATEGORY 2--BENIGN FINDING: RIGHT BREAST: No significant suspicious finding. No significant change has occurred. LEFT BREAST: No significant suspicious finding. Scattered clusters of calcifications are stable and favor benign etiology. No significant change has occurred. Ultrasound evaluation of the subareolar soft tissue demonstrates normal appearing fibroglandular tissue. RECOMMENDATIONS: ROUTINE MAMMOGRAM AND CLINICAL EVALUATION IN 12 MONTHS. PLEASE NOTE: A NORMAL MAMMOGRAM DOES NOT EXCLUDE THE POSSIBILITY OF BREAST CANCER. A CLINICALLY SUSPICIOUS PALPABLE LUMP SHOULD BE BIOPSIED. Dictated by: Freddie Mcclellan M.D. on 05/10/2022 at 14:53 Approved by: Freddie Mcclellan M.D. on 05/10/2022 at 14:55 Normal [facility] US BREAST LEFT LIMITEDon US BREAST LEFT LIMITED Patient: MARIBEL SWIFT Exam Date: 05/10/2022 : 1955 Gender:F Ordering : DR MONICA GUDINO M.D. Admission #: [id number] Family : Order #: [id number] CLICK HERE TO VIEW EXAM RADIOLOGY REPORT PROCEDURE: MAMMOGRAM DIAGNOSTIC 3D BILATERAL CAD, 05/10/2022, 12:44 ULTRASOUND BREAST LEFT LIMITED, 05/10/2022, 13:45 COMPARISON: US BREAST LEFT LIMITED, 10/30/2021. MG MAMM LT DIAG FU, 10/30/2021. MG MAMM SCREEN 3D PERRY CAD, 10/20/2021. INDICATIONS: Abnormal findings on diagnostic imaging of breast Calculator Name NCI Breast Cancer Risk Assessment Tool 5 Year Breast Cancer Risk 2.50% Lifetime Breast Cancer Risk 9.00% Personal Breast Cancer No Personal Ovarian Cancer No Treatments None Family Cancers Cousin-maternal with breast cancer at age 61; Mother with lung cancer at age 78; Father with lung cancer at age 52; Sister with thyroid cancer at age 38. LOCATION: [facility] BREAST COMPOSITION: Scattered areas fibroglandular density. FINDINGS: DIAGNOSTIC CATEGORY 2--BENIGN FINDING: RIGHT BREAST: No significant suspicious finding. No significant change has occurred. LEFT BREAST: No significant suspicious finding. Scattered clusters of calcifications are stable and favor benign etiology. No significant change has occurred. Ultrasound evaluation of the subareolar soft tissue demonstrates normal appearing fibroglandular tissue. RECOMMENDATIONS: ROUTINE MAMMOGRAM AND CLINICAL EVALUATION IN 12 MONTHS. PLEASE NOTE: A NORMAL MAMMOGRAM DOES NOT EXCLUDE THE POSSIBILITY OF BREAST CANCER. A CLINICALLY SUSPICIOUS PALPABLE LUMP SHOULD BE BIOPSIED. Dictated by: Freddie Mcclellan M.D. on 05/10/2022 at 14:53 Approved by: Freddie Mcclellan M.D. on 05/10/2022 at 14:55 Normal [facility] MG MAMM LT DIAG FUon 10-30- 022 MG MAMM LT DIAG FU Patient: MARIBEL SWIFT Exam Date: 10/30/2021 : 1955 Gender:F Ordering : DR MONICA GUDINO M.D. Admission #: [id number] Family : Order #: [id number] CLICK HERE TO VIEW EXAM RADIOLOGY REPORT PROCEDURE: MAMMOGRAM LEFT DIAGNOSTIC DIGITAL FOLLOW UP, 10/30/2021, 13:49 ULTRASOUND BREAST LEFT LIMITED, 10/30/2021, 14:04 COMPARISON: MG MAMM SCREEN 3D PERRY CAD, 10/20/2021. MG MAMM SCREEN PERRY W CAD, 08/01/2018. INDICATIONS: Mammography abnormal Calculator Name NCI Breast Cancer Risk Assessment Tool 5 Year Breast Cancer Risk 2.50% Lifetime Breast Cancer Risk 9.00% Personal Breast Cancer No Personal Ovarian Cancer No Treatments None Family Cancers Cousin-maternal with breast cancer at age 61; Mother with lung cancer at age 78; Father with lung cancer at age 52; Sister with thyroid cancer at age 38. LOCATION: [facility] BREAST COMPOSITION: Scattered areas fibroglandular density. FINDINGS: DIAGNOSTIC CATEGORY 3--PROBABLY BENIGN FINDING. THE FOLLOWING FINDING(S) HAS A HIGH PROBABILITY OF A BENIGN ETIOLOGY: LEFT BREAST: Spot magnification views demonstrate linear distribution of microcalcifications and a few small clusters, not overtly suspicious, and possibly representing vascular calcifications. New line ultrasound evaluation demonstrates normal appearing fibroglandular tissue. As a precautionary measure follow-up diagnostic mammography of left breast in 6 months is recommended to document stability. RECOMMENDATIONS: SHORT TERM FOLLOW-UP DIAGNOSTIC MAMMOGRAM LEFT BREAST IN 6 MONTHS. PLEASE NOTE: A NORMAL MAMMOGRAM DOES NOT EXCLUDE THE POSSIBILITY OF BREAST CANCER. A CLINICALLY SUSPICIOUS PALPABLE LUMP SHOULD BE BIOPSIED. Dictated by: Freddie Mcclellan M.D. on 10/30/2021 at 14:25 Approved by: Freddie Mcclellan M.D. on 10/30/2021 at 14:33 Normal [facility] US BREAST LEFT LIMITEDon US BREAST LEFT LIMITED Patient: MARIBEL SWIFT Exam Date: 10/30/2021 : 1955 Gender:F Ordering : DR MONICA GUDINO M.D. Admission #: [id number] Family : Order #: [id number] CLICK HERE TO VIEW EXAM RADIOLOGY REPORT PROCEDURE: MAMMOGRAM LEFT DIAGNOSTIC DIGITAL FOLLOW UP, 10/30/2021, 13:49 ULTRASOUND BREAST LEFT LIMITED, 10/30/2021, 14:04 COMPARISON: MG MAMM SCREEN 3D PERRY CAD, 10/20/2021. MG MAMM SCREEN PERRY W CAD, 08/01/2018. INDICATIONS: Mammography abnormal Calculator Name NCI Breast Cancer Risk Assessment Tool 5 Year Breast Cancer Risk 2.50% Lifetime Breast Cancer Risk 9.00% Personal Breast Cancer No Personal Ovarian Cancer No Treatments None Family Cancers Cousin-maternal with breast cancer at age 61; Mother with lung cancer at age 78; Father with lung cancer at age 52; Sister with thyroid cancer at age 38. LOCATION: [facility] BREAST COMPOSITION: Scattered areas fibroglandular density. FINDINGS: DIAGNOSTIC CATEGORY 3--PROBABLY BENIGN FINDING. THE FOLLOWING FINDING(S) HAS A HIGH PROBABILITY OF A BENIGN ETIOLOGY: LEFT BREAST: Spot magnification views demonstrate linear distribution of microcalcifications and a few small clusters, not overtly suspicious, and possibly representing vascular calcifications. New line ultrasound evaluation demonstrates normal appearing fibroglandular tissue. As a precautionary measure follow-up diagnostic mammography of left breast in 6 months is recommended to document stability. RECOMMENDATIONS: SHORT TERM FOLLOW-UP DIAGNOSTIC MAMMOGRAM LEFT BREAST IN 6 MONTHS. PLEASE NOTE: A NORMAL MAMMOGRAM DOES NOT EXCLUDE THE POSSIBILITY OF BREAST CANCER. A CLINICALLY SUSPICIOUS PALPABLE LUMP SHOULD BE BIOPSIED. Dictated by: Freddie Mcclellan M.D. on 10/30/2021 at 14:25 Approved by: Freddie Mcclellan M.D. on 10/30/2021 at 14:33 Normal [facility] CT LUNG CANCER SCREENINGon 0 10-22-2021 CT LUNG CANCER SCREENING EXAMINATION: CT LUNG CANCER SCREENING HISTORY: Nicotine dependence COMPARISON: CT lung cancer screening 09/18/2019 TECHNIQUE: Axial, Coronal, and Sagittal images were created without the administration of IV contrast material. Dose reduction techniques were achieved by using automated exposure control and/or adjustment of mA and/or kV according to patient size and/or use of iterative reconstruction technique. FINDINGS: LUNGS: No acute infiltrates, significant chronic interstitial changes, or suspicious nodules. Stable appearance of a few tiny punctate nodules. PLEURA: No mass, effusion, or pneumothorax. VASCULATURE: No abnormality. ANJANA: No mass or pathologic adenopathy. MEDIASTINUM: No mass or pathologic adenopathy. CARDIAC: No enlargement, pericardial thickening, or significant calcification. AORTA: No aneurysm or dissection. CHEST WALL: Asymmetrically small left thyroid lobe versus prior resection. No mass or axillary adenopathy BONES: No bone lesion or fracture. LIMITED ABDOMEN: No suspicious findings. Limited images of the upper abdomen. OTHER: Negative. IMPRESSION: 1. LUNG SCREENING: Lung-RADS Category 1 Negative. No nodules and definitely benign nodules. Continue annual screening with LDCT in 12 months. Electronically authenticated by: FREDDIE MCCLELLAN Date: 2021-10-22 08:43 Normal [facility] MG MAMM SCREEN 3D PERRY CADon 10-20-2021 MG MAMM SCREEN 3D PERRY CAD Patient: MARIBEL SWIFT Exam Date: 10/20/2021 : 1955 Gender:F Ordering : DR MONICA GUDINO M.D. Admission #: [id number] Family : Order #: [id number] CLICK HERE TO VIEW EXAM RADIOLOGY REPORT PROCEDURE: MAMMOGRAM SCREENING 3D BILATERAL CAD COMPARISON: MG MAMM SCREEN PERRY W CAD, 08/01/2018. MG MAMM PERRY SCRN W CAD DIG, 03/13/2015. INDICATIONS: Screening mammography Calculator Name NCI Breast Cancer Risk Assessment Tool 5 Year Breast Cancer Risk 2.50% Lifetime Breast Cancer Risk 9.00% Personal Breast Cancer No Personal Ovarian Cancer No Treatments None Family Cancers Cousin-maternal with breast cancer at age 61; Mother with lung cancer at age 78; Father with lung cancer at age 52; Sister with thyroid cancer at age 38. LOCATION: [facility] BREAST COMPOSITION: Scattered areas fibroglandular density. FINDINGS: DIAGNOSTIC CATEGORY 0--INCOMPLETE: NEED ADDITIONAL IMAGING EVALUATION. RIGHT BREAST: No significant suspicious finding. No significant change has occurred. LEFT BREAST: Increasing punctate calcifications within central breast in the CC and MLO projection. Spot magnification views and ultrasound evaluation are recommended. RECOMMENDATIONS: ADDITIONAL MAMMOGRAPHIC VIEWS REQUIRED: LEFT BREAST - LEFT CRANIOCAUDAL SPOT MAGNIFICATION VIEW - LEFT OBLIQUE SPOT MAGNIFICATION VIEW - ULTRASOUND: LEFT BREAST PLEASE NOTE: A NORMAL MAMMOGRAM DOES NOT EXCLUDE THE POSSIBILITY OF BREAST CANCER. A CLINICALLY SUSPICIOUS PALPABLE LUMP SHOULD BE BIOPSIED. Dictated by: Freddie Mcclellan M.D. on 10/21/2021 at 13:26 Approved by: Freddie Mcclellan M.D. on 10/21/2021 at 13:34 Normal [facility] Cytologyon 01-11-2019 Cytology (NOTE) [id number] [facility] [email or web address] [facility] ANATOMIC PATHOLOGY [address] [place] [id number] GYNECOLOGIC CYTOLOGY REPORT Patient Name: MARIBEL SWIFT MR#: [id number] Specimen #[id number] Source: 1: Cervical material, (ThinPrep vial, Imaging-assisted review) Clinical History Postmenopausal Z01.419 Routine nurse obgyn exam without abnormal findings High Risk HPV DNA testing is requested if the diagnosis is ASC-US INTERPRETATION Cervical material, (ThinPrep vial, Imaging-assisted review): Specimen Adequacy: Satisfactory for evaluation. -Endocervical/transform ation zone component is absent. Descriptive Diagnosis: Negative for intraepithelial lesion or malignancy. Can Capper: VERO Hawk CT(ASCP) Electronically Signed Out 01/17/2019 [facility] Comment on above: Performed By: #### P PPVP #### [facility] [address] [place] [address] Circular Saw Edge Fuser: Matthew Gamez MD Vital Signs Date Time Vital Sign Value Performing Clinician Facility 05-10-2024 13:11-0500 Body height 167.6 cm Shereen Pressley LAUNDRY HELPER Work Phone: [facility] 05-10-2024 13:11-0500 Body mass index (BMI) [Ratio] 49.71 kg/m2 Shereen Pressley LAUNDRY HELPER Work Phone: [facility] 05-10-2024 13:11-0500 Body weight 139.71 kg Shereen Pressley LAUNDRY HELPER Work Phone: [facility] 05-10-2024 13:11-0500 Diastolic blood pressure 82 mm[Hg] Shereen Pressley LAUNDRY HELPER Work Phone: [facility] 05-10-2024 13:11-0500 Heart rate 67 /min Shereen Pressley LAUNDRY HELPER Work Phone: [facility] 05-10-2024 13:11-0500 Respiratory rate 17 /min Shereen Pressley LAUNDRY HELPER Work Phone: [facility] 05-10-2024 13:11-0500 SaO2% (BldA) [Mass fraction] 96 % Shereen Pressley LAUNDRY HELPER Work Phone: [facility] 05-10-2024 13:11-0500 Systolic blood pressure 136 mm[Hg] Shereen Pressley LAUNDRY HELPER Work Phone: [facility] 02-14-2024 11:21-0500 Body height 167.6 cm Monica Gudino MD Work Phone: [facility] 02-14-2024 11:21-0500 Body mass index (BMI) [Ratio] 48.91 kg/m2 Monica Gudino MD Work Phone: [facility] 02-14-2024 11:21-0500 Body weight 137.44 kg Monica Gudino MD Work Phone: [facility] 02-14-2024 11:21-0500 Diastolic blood pressure 82 mm[Hg] Monica Gudino MD Work Phone: [facility] 02-14-2024 11:21-0500 Heart rate 79 /min Monica Gudino MD Work Phone: [facility] 02-14-2024 11:21-0500 SaO2% (BldA) [Mass fraction] 96 % Monica Gudino MD Work Phone: [facility] 02-14-2024 11:21-0500 Systolic blood pressure 138 mm[Hg] Monica Gudino MD Work Phone: [facility] 11-22-2023 13:42-0400 Blood Pressure Location Stephanie ROBUCK [facility] 11-22-2023 13:42-0400 Diastolic blood pressure 77 mm[Hg] Stephanie ROBUCK [facility] 11-22-2023 13:42-0400 Heart rate 82 /min Stephanie ROBUCK [facility] 11-22-2023 13:42-0400 SaO2% (BldA) [Mass fraction] 96 % Stephanie ROBUCK [facility] 11-22-2023 13:42-0400 Systolic blood pressure 135 mm[Hg] Stephanie ROBUCK [facility] 05-05-2023 13:07-0500 Body mass index (BMI) [Ratio] 49.78 kg/m2 Shereen Pressley NP Work Phone: [facility] 05-05-2023 13:07-0500 Body weight 139.89 kg Shereen Pressley NP Work Phone: [facility] 05-05-2023 13:07-0500 Diastolic blood pressure 83 mm[Hg] Shereen Pressley LAUNDRY HELPER Work Phone: [facility] 05-05-2023 13:07-0500 Heart rate 77 /min Shereenjennifer Pressley LAUNDRY HELPER Work Phone: [facility] 05-05-2023 13:07-0500 Respiratory rate 14 /min Shereen Pressley LAUNDRY HELPER Work Phone: [facility] 05-05-2023 13:07-0500 SaO2% (BldA) [Mass fraction] 98 % Shereenjennifer Pressley LAUNDRY HELPER Work Phone: [facility] 05-05-2023 13:07-0500 Systolic blood pressure 142 mm[Hg] Shereen Pressley LAUNDRY HELPER Work Phone: [facility] 01-20-2023 13:56-0400 Blood Pressure Location Stephanie ROBUCK [facility] 01-20-2023 13:56-0400 Diastolic blood pressure 85 mm[Hg] Stephanie ROBUCK [facility] 01-20-2023 13:56-0400 Heart rate 66 /min Stephanie ROBUCK [facility] 01-20-2023 13:56-0400 SaO2% (BldA) [Mass fraction] 97 % Stephanie ROBUCK [facility] 01-20-2023 13:56-0400 Systolic blood pressure 136 mm[Hg] Stephanie ROBUCK [facility] 11-25-2022 14:51-0400 Diastolic blood pressure 72 mm[Hg] Stephanie ROBUCK [facility] 11-25-2022 14:51-0400 Mean blood pressure 91 mm[Hg] Stephanie ROBUCK [facility] 11-25-2022 14:51-0400 Systolic blood pressure 128 mm[Hg] Stephanie ROBUCK [facility] 11-25-2022 13:49-0400 Blood Pressure Location Stephanie ROBUCK [facility] 11-25-2022 13:49-0400 Diastolic blood pressure 85 mm[Hg] Stephanie ROBUCK [facility] 11-25-2022 13:49-0400 Heart rate 73 /min Stephanie ROBUCK [facility] 11-25-2022 13:49-0400 SaO2% (BldA) [Mass fraction] 95 % Stephanie ROBUCK [facility] 11-25-2022 13:49-0400 Systolic blood pressure 138 mm[Hg] Stephanie ROBUCK [facility] 05-20-2022 14:00-0500 Mean blood pressure 102 mm[Hg] Kelli Klonk [facility] 05-20-2022 14:00-0500 Systolic blood pressure 142 mm[Hg] Kelli Klonk [facility] 05-20-2022 13:36-0500 Blood Pressure Location Kelli Klonk [facility] 05-20-2022 13:36-0500 Body temperature 97.88 [degF] Kelli Klonk [facility] 05-20-2022 13:36-0500 Diastolic blood pressure 82 mm[Hg] Kelli Klonk [facility] 05-20-2022 13:36-0500 Heart rate 78 /min Kelli Klonk [facility] 05-20-2022 13:36-0500 SaO2% (BldA) [Mass fraction] 94 % Kelli Klonk [facility] 05-20-2022 13:36-0500 Systolic blood pressure 162 mm[Hg] Kelli Klonk [facility] 07-29-2021 09:27-0400 Blood Pressure Location Kelli Klonk [facility] 07-29-2021 09:27-0400 Body temperature 97.7 [degF] Kelli Klonk [facility] 07-29-2021 09:27-0400 Diastolic blood pressure 84 mm[Hg] Kelli Klonk [facility] 07-29-2021 09:27-0400 Heart rate 71 /min Kelli Klonk [facility] 07-29-2021 09:27-0400 SaO2% (BldA) [Mass fraction] 96 % Kelli Klonk [facility] 07-29-2021 09:27-0400 Systolic blood pressure 138 mm[Hg] Kelli Klonk [facility] Encounters Encounter Date Encounter Type Care Provider Facility Start: 05-10-2024 End: 05-10-2024 Lon Pressley LAUNDRY HELPER Work Phone: [facility] Start: 05-10-2024 End: 05-10-2024 Bamboo flowsheet Shereen Pressley LAUNDRY HELPER Work Phone: [facility] Start: 05-10-2024 End: 05-10-2024 Assay of hemosiderin, quant Shereen Pressley LAUNDRY HELPER Work Phone: [facility] Start: 05-10-2024 End: 05-10-2024 Patient encounter procedure Shereen Pressley LAUNDRY HELPER Work Phone: [facility] Comment on above: Medicare annual [facility] visit, subsequent (Primary Dx); Routine general medical examination at health care facility; Daytime somnolence; Calcification of coronary artery (CMS/HCC); Essential hypertension (CMS/HCC); OAB (overactive bladder); Bilateral edema of lower extremity; Leg cramps; Myalgia; Myopathy; Acquired hypothyroidism (CMS/HCC); Adult BMI 45.0-49.9 kg/sq m (CMS/HCC); Morbid obesity due to excess calories (CMS/HCC); Severe obesity (BMI >= 40) (CMS/HCC); Elevated hematocrit; Abnormal mammogram; Adjustment disorder with anxiety (CMS/HCC); Allergic rhinitis, unspecified seasonality, unspecified trigger; Cyst of skin; Estrogen deficiency; Other fatigue; Former smoker; Hair loss; Hypercalcemia; Lack of motivation; Personal history of smoking; Screening for hyperlipidemia; Seasonal allergies; Thoracic outlet syndrome; Encounter for screening mammogram for malignant neoplasm of breast Start: 05-10-2024 End: 05-10-2024 ambulatory SHEREEN PRESSLEY Not Available Start: 02-14-2024 End: 02-14-2024 Office outpatient visit 25 minutes Monica Gudino MD Work Phone: [facility] Comment on above: Daytime somnolence ( Primary Dx); Essential hypertension (CMS/HCC); Other fatigue; Lack of motivation Start: 02-14-2024 End: 02-14-2024 ambulatory MONICA GUDINO Not Available Start: 11-22-2023 End: 11-22-2023 Lab Drop off Stephanie KOWALSKI [facility] Start: 11-22-2023 End: 11-22-2023 ambulatory Stephanie E ROBUCK Facility:[facility] Start: 11-22-2023 End: 11-22-2023 Patient encounter procedure Stephanie E ROBUCK [facility] Start: 10-04-2023 End: 10-04-2023 ambulatory MONICA GUDINO Not Available Start: 05-05-2023 End: 05-05-2023 Assay of hemosiderin, quant Shereen Pressley LAUNDRY HELPER Work Phone: [facility] Start: 05-05-2023 End: 05-05-2023 Patient encounter procedure Shereen Pressley LAUNDRY HELPER Work Phone: [facility] Comment on above: Medicare annual [facility] visit, subsequent (Primary Dx); Calcification of coronary artery (CMS/HCC); Essential hypertension (CMS/HCC); OAB (overactive bladder); Bilateral edema of lower extremity; Leg cramps; Acquired hypothyroidism (CMS/HCC); Adult BMI 45.0-49.9 kg/sq m (CMS/HCC); Morbid obesity due to excess calories (CMS/HCC); Severe obesity (BMI >= 40) (CMS/HCC); Adjustment disorder with anxiety (CMS/HCC); Allergic rhinitis, unspecified seasonality, unspecified trigger; Estrogen deficiency; Hypercalcemia; Screening for hyperlipidemia; Thoracic outlet syndrome; Former smoker; Vitamin B12 deficiency; Vitamin D deficiency; Gastroesophageal reflux disease without esophagitis; Routine general medical examination at health care facility Start: 01-20-2023 End: 01-20-2023 ambulatory Stephanie E ROBUCK Facility:[facility] Start: 01-20-2023 End: 01-20-2023 Patient encounter procedure Stephanie E ROBUCK [facility] Start: 11-25-2022 End: 11-25-2022 ambulatory Stephanie E ROBUCK Facility:[facility] Start: 11-25-2022 End: 11-25-2022 Lab Drop off Stephanie E MANAUCK [facility] Start: 11-25-2022 End: 11-25-2022 ambulatory Stephanie KOWALSKI Facility:[facility] Start: 11-25-2022 End: 11-25-2022 Patient encounter procedure Stephanie Ibarra MANAMONIQUE [facility] Start: 05-20-2022 End: 05-20-2022 Patient encounter procedure Kelli Nicole [facility] Start: 05-10-2022 End: 05-11-[address] MONICA GUDINO Facility: Start: 10-30-2021 End: 10-31-[address] MONICA GUDINO Facility: Start: 10-20-2021 End: 10-21-[address] MONICA GUDINO Facility:[facility] Start: 07-29-2021 End: 07-29-2021 Patient encounter procedure Kelli Nicole [facility] Start: 01-11-2019 End: 01-12-2019 Patient encounter procedure NUSRAT [facility] Start: 01-11-2019 End: 01-11-2019 Subsequent hospital visit by physician [facility] Comment on above: Women's annual routi ne gynecological examination Procedures Date Procedure Procedure Detail Performing Clinician Start: 05-12-2023 Mammography Monica Gudino MD Work Phone: Start: 04-04-2023 Laboratory test result abnormal Abnormal laboratory test Shereen Pressley [employer] Work Phone: Start: 05-10-2022 Mammography Shereen Pressley [employer]PER Work Phone: Start: 01-11-2019 Screen pap by dudley P[facility]TMAN Start: 04-10-2012 Colonoscopy Shereen Pressley [employer] Work Phone: Bilateral thoracic o utlet syndrome Kelli Nicole Cholecystectomy Kelli Nicole Colonoscopy Kelli Nicole Partial lobectomy of thyroid Kelli Nicole Umbilical hernia (disorder) Kleli Nicole Plan of Treatment Date Care Activity Detail Author Start: 05-10-2025 Medicare Annual Wellness (AWV) Medicare Annual Wellness (AWV) [facility] Start: 04-12-2025 Screening for malign ant neoplasm of colon [facility] Start: 06-25-2024 End: 06-25-2024 Patient encounter procedure 06/25/2024 10:00 AM EDT Office Visit [facility] [address] [place] [address] Monica Gudino MD [address] [place] [address] [facility] Start: 06-12-2024 End: 06-12-2024 Patient encounter procedure 06/12/2024 1:00 PM EDT Office Visit [facility] [address] [place] [address] Monica Gudino MD [address] [place] [address] [facility] Start: 05-12-2024 Screening for malign ant neoplasm of breast Mammogram [facility] Start: 05-10-2024 End: 05-10-2025 25-hydroxyvitamin D3 [Mass/volume] in Serum or Plasma Vitamin D 25 hydroxy Lab Routine Daytime somnolence Other fatigue Lack of motivation Medicare annual wellness visit, subsequent Expected: 05/10/2024 (Approximate), Expires: 05/10/2025 [facility] Comment on above: Expected: 05/10/2024 (Approximate), Expires: 05/10/2025 Start: 05-10-2024 End: 05-10-2025 CBC panel - Blood by Automated count CBC Lab Routine Daytime somnolence Essential hypertension (CMS/HCC) Leg cramps Expected: 05/10/2024 (Approximate), Expires: 05/10/2025 [facility] Comment on above: Expected: 05/10/2024 (Approximate), Expires: 05/10/2025 Start: 05-10-2024 End: 05-10-2025 Cobalamin (Vitamin B12) [Mass/volume] in Serum or Plasma Vitamin B12 Lab Routine Daytime somnolence Medicare annual wellness visit, subsequent Expected: 05/10/2024 (Approximate), Expires: 05/10/2025 [facility] Comment on above: Expected: 05/10/2024 (Approximate), Expires: 05/10/2025 Start: 05-10-2024 End: 05-10-2025 Comprehensive metabolic 2000 panel - Serum or Plasma Comprehensive metabolic panel Lab Routine Essential hypertension (CMS/HCC) Acquired hypothyroidism (CMS/HCC) Other fatigue Hypercalcemia Medicare annual wellness visit, subsequent Expected: 05/10/2024 (Approximate), Expires: 05/10/2025 [facility] Comment on above: Expected: 05/10/2024 (Approximate), Expires: 05/10/2025 Start: 05-10-2024 End: 05-10-2025 CT Chest for screening WO contrast CT lung screening low dose Imaging Routine Routine general medical examination at [facility] Former smoker Expected: 05/10/2024, Expires: 05/10/2025 [facility] Comment on above: Expected: 05/10/2024 , Expires: 05/10/2025 Start: 05-10-2024 End: 05-10-2025 Lipid 1996 panel - Serum or Plasma Lipid panel Lab Routine Personal history of smoking Screening for hyperlipidemia Medicare annual wellness visit, subsequent Expected: 05/10/2024 (Approximate), Expires: 05/10/2025 [facility] Comment on above: Expected: 05/10/2024 (Approximate), Expires: 05/10/2025 Start: 05-10-2024 End: 07-08-2025 MG Breast - bilateral Screening Bilateral screening mammogram Imaging Routine Abnormal mammogram Encounter for screening mammogram for malignant neoplasm of breast Expected: 05/10/2024, Expires: 07/08/2025 [facility] Comment on above: Expected: 05/10/2024 , Expires: 07/08/2025 Start: 05-10-2024 End: 05-10-2025 Thyrotropin [Units/volume] in Serum or Plasma TSH Lab Routine Acquired hypothyroidism (CMS/HCC) Medicare annual wellness visit, subsequent Expected: 05/10/2024 (Approximate), Expires: 05/10/2025 [facility] Work Phone: Comment on above: Expected: 05/10/2024 (Approximate), Expires: 05/10/2025 Start: 05-10-2024 End: 05-10-2024 Patient encounter procedure [facility] Comment on above: Arrived Start: 05-05-2024 Medicare Annual Wellness (AWV) Medicare Annual Wellness (AWV) [facility] Start: 10-04-2023 End: 10-04-2023 Patient encounter procedure 10/04/2023 11:00 AM EDT Office Visit [facility] [address] [place] [id number] Monica Gudino MD [address] [place] [address] [facility] Start: 05-10-2023 Screening for malign ant neoplasm of breast Mammogram [facility] Start: 05-05-2023 End: 05-05-2024 25-hydroxyvitamin D3 [Mass/volume] in Serum or Plasma Vitamin D 25 hydroxy Lab Routine Hypercalcemia Vitamin D deficiency Expected: 05/05/2023 (Approximate), Expires: 05/05/2024 [facility] Comment on above: Expected: 05/05/2023 (Approximate), Expires: 05/05/2024 Start: 05-05-2023 End: 05-05-2024 CBC panel - Blood by Automated count CBC Lab Routine Essential hypertension (CMS/HCC) Allergic rhinitis, unspecified seasonality, unspecified trigger Medicare annual wellness visit, subsequent Expected: 05/05/2023 (Approximate), Expires: 05/05/2024 [facility] Comment on above: Expected: 05/05/2023 (Approximate), Expires: 05/05/2024 Start: 05-05-2023 End: 05-05-2024 Cobalamin (Vitamin B12) [Mass/volume] in Serum or Plasma Vitamin B12 Lab Routine Vitamin B12 deficiency Expected: 05/05/2023 (Approximate), Expires: 05/05/2024 [facility] Comment on above: Expected: 05/05/2023 (Approximate), Expires: 05/05/2024 Start: 05-05-2023 End: 05-05-2024 Comprehensive metabolic 2000 panel - Serum or Plasma Comprehensive metabolic panel Lab Routine Essential hypertension (CMS/HCC) Acquired hypothyroidism (CMS/HCC) Hypercalcemia Expected: 05/05/2023 (Approximate), Expires: 05/05/2024 [facility] Comment on above: Expected: 05/05/2023 (Approximate), Expires: 05/05/2024 Start: 05-05-2023 End: 05-05-2024 CT Chest for screening WO contrast CT lung screening low dose Imaging Routine Former smoker Expected: 05/05/2023, Expires: 05/05/2024 [facility] Work Phone: Comment on above: Expected: 05/05/2023 , Expires: 05/05/2024 Start: 05-05-2023 End: 05-05-2024 Lipid 1996 panel - Serum or Plasma Lipid panel Lab Routine Screening for hyperlipidemia Medicare annual wellness visit, subsequent Expected: 05/05/2023 (Approximate), Expires: 05/05/2024 [facility] Comment on above: Expected: 05/05/2023 (Approximate), Expires: 05/05/2024 Start: 05-05-2023 End: 05-05-2024 Thyrotropin [Units/volume] in Serum or Plasma TSH Lab Routine Acquired hypothyroidism (CMS/HCC) Expected: 05/05/2023 (Approximate), Expires: 05/05/2024 [facility] Comment on above: Expected: 05/05/2023 (Approximate), Expires: 05/05/2024 Start: 04-10-2022 Screening for malign ant neoplasm of colon Colonoscopy [facility] Start: 12-03-2018 Influenza vaccination Flu vaccine (# 1) [place], [place] Start: 06-08-2005 Breast cancer screen Breast cancer s creen [place] Start: 06-08-2005 Colon cancer screen colonoscopy Colon cancer screen colonoscopy [place] Start: 06-08-2005 Shingles Vaccine (1 of 2) Shingles Vaccine (1 of 2) [place], [place] Start: 1995 Diabetes screen Diabetes screen [place], [place] Start: 1995 Lipid screen Lipid screen [place], [place] Start: 06-08-1976 Cervical cancer screen Cervical canc er screen [place], [place] Start: 06-08-1974 DTaP/Tdap/Td vaccine (1 - Tdap) DTaP/Tdap/Td vaccine (1 - Tdap) [place] Start: 06-08-1970 HIV screen HIV screen [place], [place] Start: 1955 Hepatitis C screen Hepatitis C scree n [place], [place] Start: 1955 Screening for malign ant neoplasm of colon [facility] End: 01-11-2019 Cytopathology procedure, preparation of smear, genital source PAP SMEAR Lab Routine Women's annual routine gynecological examination 1 Occurrences starting 01/11/2019 until 01/11/2019 [place] Comment on above: 1 Occurrences starti ng 01/11/2019 until 01/11/2019 Immunizations Immunization Date Immunization Notes Care Provider Fa [facility] 09-26-2013 tetanus toxoid, reduced diphtheria toxoid, and acellular pertussis vaccine, adsorbed Shereen Pressley [employer] HELPER Work Phone: [facility] 09-26-2013 zoster vaccine, live Kelli Klonk [facility] NEGATED: Highlighted row has not occurred!01-20-2023 influenza virus vaccine, unspecified formulation Stephanie DEX [facility] NEGATED: Highlighted row has not occurred!05-13-2021 influenza virus vaccine, unspecified formulation Kelli Klonk [facility] NEGATED: Highlighted row has not occurred!05-13-2021 SARS-CoV-2 (COVID-19) Ad26 vaccine, recombinant Kelli Klonk [facility] Payers Date Payer Category Payer Medicaid [employer] MEDICARE A DVANTAGE [id number] 2021 Medicare AETNA MEDICARE A DVANTAGE AETNA MEDICARE REPLACEMENT [id number] 2021-Present [address] [place] [address] [id number] 2018 Medicare [id number] 2018 Medicare MEDICARE MEDICAR E PART A AND B xxxxxxxxxxx 2018-Present [phone] [address] [address] [place] [address] xxxxxxxxxxx [id number] 2018 Unknown [id number] 2018 Unknown BCBS BCBS OUT OF STATE xxxxxxxxxxxx 2018-Present [address] [place] [address] xxxxxxxxxxxx [id number] 1959 Medicare [id number] 1955 Unknown [id number] 1955 Unknown [id number] 1955 Unknown [id number] 1955 Unknown [id number] 1955 Unknown [id number] 1955 Unknown [id number] 1955 Unknown [id number] 1955 Unknown [id number] 1955 Unknown [id number] 1955 Unknown [id number] 9 1955 Unknown [id number] 9 1955 Unknown [id number] 9 Social History Date Type Detail Facility Start: 01-11-2019 End: 05-10-2024 Tobacco smoking status NHIS Former smoker [place], [place] Start: 01-11-2019 End: 05-10-2024 Alcohol intake Yes [place] Start: 01-11-2019 Alcohol Comment socially [place], [place] Start: 1955 Sex Assigned At Not on file [place] Tobacco smoking status Never [facility] End: 04-04-2011 History of tobacco use Current smoker [facility] End: 04-04-2011 History of tobacco use Cigarette Smoker [facility] Start: 09-14-2022 End: 05-10-2024 Cigarettes smoked current (pack per day) - Reported 1.5 [facility] Start: 09-14-2022 End: 05-10-2024 Tobacco use and exposure Smokeless tobacco non-user [facility] Start: 05-05-2023 End: 05-10-2024 Alcohol intake Current drinker of alcohol (finding) [facility] Start: 04-05-2023 Alcohol Comment Points: 1, Interpretation: Negative [facility] Functional Status Date Assessment Result Facility 11-22-[address] Symptomatic Af ter Exposure to Contagion No [facility] 05-20-2022 Functional Status N/A [facility] Clinical Notes 10-21-2022 to 05-10-2024 Shereen Pressley NP - 05/10/2024 1:00 PM Clifford Gudino MD - 02/14/2024 11:43 AM Clifford Gudino MD - 02/14/2024 11:37 AM Clifford Gudino MD - 02/14/2024 11:30 AM ESTLaboratory Note Date & Type Note Facility 05-10-2024 History of Present illness Narrative Images from the original note were not included. Subjective Patient ID: Maribel Swift is a 68 y.o. female who presents for No chief complaint on file.. Here for Medicare Wellness. Knee pain wants referral to orthopedic. Will call with name. Current Outpatient Medications on File Prior to Visit Medication Sig Dispense Refill buPROPion SR (Wellbutrin SR) 100 MG 12 hr tablet Take 1 tablet (100 mg) by mouth in the morning and 1 tablet (100 mg) before bedtime. Do not crush, chew, or split.. 200 tablet 3 cholecalciferol (Vitamin D-3) 125 MCG (5000 UT) capsule Take 5,000 Units by mouth in the morning. cyanocobalamin (Vitamin B-12) 500 MCG tablet Take 1 tablet by mouth in the morning. fluticasone (Flonase) 50 MCG/ACT nasal spray Administer 1 spray into each nostril in the morning. Shake gently. Before first use, prime pump. After use, clean tip and replace cap.. levothyroxine (Synthroid, Levoxyl) 100 MCG tablet Take 1 tablet by mouth in the morning. Take before meals. losartan-hydroCHLOROthiazide (Hyzaar) 100-25 MG tablet Take 1 tablet by mouth Daily 100 tablet 3 omeprazole (PriLOSEC) [address] capsule TAKE 1 CAPSULE IN THE MORNING BEFORE A MEAL. DO NOT CRUSH OR CHEW 100 capsule 3 oxybutynin XL (Ditropan-XL) 10 MG 24 hr tablet Take 10 mg by mouth. spironolactone (Aldactone) 25 MG tablet Take 1 tablet (25 mg) by mouth Daily 30 tablet 11 No current facility-administered medications on file prior to visit. I have reviewed and reconciled the history and medication list with the patient today. Allergies Allergen Reactions Aspirin Headache Meperidine Unknown Oxycodone Headache Penicillins Rash Social History Tobacco Use Smoking status: Former Current packs/day: 0.00 Types: Cigarettes Quit date: 2011 Years since quittin.1 Smokeless tobacco: Never Substance Use Topics Alcohol use: Yes Comment: Points: 1, Interpretation: Negative Family History Problem Relation Name Age of Onset Alzheimer's disease Mother Past Medical History: Diagnosis Date Anxiety Change in bowel habit Cyst Disease of thyroid gland (CMS/HCC) EBV infection 2019 Edema Gallbladder disease 2005 Hypercalcemia Hypertension (CMS/HCC) Hypothyroidism (CMS/HCC) Screening for lung cancer 10/22/2021 Lung Screening Category 1 Negative Seasonal allergies Thoracic outlet syndrome Past Surgical History: Procedure Laterality Date BI BREAST BIOPSY ( TECHNIQUE PER RADIOLOGY ) 2013 mammogram COLONOSCOPY 2012 DEXA BONE DENSITOMETRY SCAN 2013 DEXA scan HERNIA REPAIR 1993 THYROIDECTOMY 1988 Visit Vitals Smoking Status Former Review of Systems Constitutional: Positive for appetite change. Activity change due to pain in knee HENT: Negative. Respiratory: Negative. Cardiovascular: Positive for leg swelling. Always has swollen legs, nothing new Gastrointestinal: Negative. Genitourinary: Negative. Musculoskeletal: Positive for arthralgias. Knee pain Skin: Negative. Neurological: Negative. Psychiatric/Behavioral: Positive for sleep disturbance. Always has trouble sleeping, nothing new Has Living Will and DPOA Objective Physical Exam Vitals reviewed. Constitutional: Appearance: Normal appearance. HENT: Head: Normocephalic. Right Ear: Tympanic membrane normal. Left Ear: Tympanic membrane normal. Nose: Nose normal. Mouth/Throat: Mouth: Mucous membranes are moist. Pharynx: Oropharynx is clear. Cardiovascular: Rate and Rhythm: Normal rate and regular rhythm. Pulmonary: Effort: Pulmonary effort is normal. Breath sounds: Normal breath sounds. Abdominal: General: Bowel sounds are normal. Palpations: Abdomen is soft. Musculoskeletal: General: Tenderness present. Cervical back: Neck supple. Comments: Left knee Skin: General: Skin is warm and dry. Neurological: General: No focal deficit present. Mental Status: She is alert and oriented to person, place, and time. Psychiatric: Mood and Affect: Mood normal. Behavior: Behavior normal. Thought Content: Thought content normal. Assessment/Plan Diagnoses and all orders for this visit: Medicare annual wellness visit, subsequent - TSH; Future - Vitamin D 25 hydroxy; Future - Lipid panel; Future - Comprehensive metabolic panel; Future - Vitamin B12; Future Reviewed all relevant preventative screenings with the patient in detail. Medicare Wellness form completed and will be scanned into patient's chart. All needed testing was ordered. Will continue with yearly Medicare Wellness exams. Routine general medical examination at [facility] - CT lung screening low dose; Future Reviewed all relevant preventative screenings with the patient in detail. Medicare Wellness form completed and will be scanned into patient's chart. All needed testing was ordered. Will continue with yearly Medicare Wellness exams. Daytime somnolence - Vitamin D 25 hydroxy; Future - CBC; Future - Vitamin B12; Future This condition has resolved and will be removed from the list Calcification of coronary artery ([facility]) This is a chronic medical condition that is stable since last assessment. No changes in treatment are suggested at this time. Essential hypertension ([facility]) - Comprehensive metabolic panel; Future - CBC; Future Patient's blood pressure is currently well controlled. Continue with current medications and I will continue to monitor. Goal BP remains less than 130/80. OAB (overactive bladder) This is a chronic medical condition that is stable since last assessment. No changes in treatment are suggested at this time. Bilateral edema of lower extremity This is a chronic medical condition that is stable since last assessment. No changes in treatment are suggested at this time. Leg cramps - CBC; Future This is a chronic medical condition that is stable since last assessment. No changes in treatment are suggested at this time. Myalgia This is a chronic medical condition that is stable since last assessment. No changes in treatment are suggested at this time. Myopathy Acquired hypothyroidism ([facility]) - TSH; Future - Comprehensive metabolic panel; Await lab Adult BMI 45.0-49.9 kg/sq m ([facility]) Discussed goal of BMI < 30. Advised on weight loss options. Encouraged diet and exercise. Discussed with patient appropriate lifestyle modification changes necessary for weight management, heart healthy eating and overall health promotion. Discussed minimizing high carb, high sugar, high sodium, portion control, and processed foods while making healthy choice replacements. Additionally discussed recommendations of 30 minutes of aerobic exercise at least 5 days per week, that includes, walking, and chair exercises. . Instructed importance of drinking adequate water consumption (if not on fluid restriction) with minimal sugar and caffiene. Morbid obesity due to excess calories ([facility]) Discussed goal of BMI < 30. Advised on weight loss options. Encouraged diet and exercise. Discussed with patient appropriate lifestyle modification changes necessary for weight management, heart healthy eating and overall health promotion. Discussed minimizing high carb, high sugar, high sodium, portion control, and processed foods while making healthy choice replacements. Additionally discussed recommendations of 30 minutes of aerobic exercise at least 5 days per week, that includes, walking, and chair exercises. . Instructed importance of drinking adequate water consumption (if not on fluid restriction) with minimal sugar and caffiene. Severe obesity (BMI >= 40) ([facility]) Discussed goal of BMI < 30. Advised on weight loss options. Encouraged diet and exercise. Discussed with patient appropriate lifestyle modification changes necessary for weight management, heart healthy eating and overall health promotion. Discussed minimizing high carb, high sugar, high sodium, portion control, and processed foods while making healthy choice replacements. Additionally discussed recommendations of 30 minutes of aerobic exercise at least 5 days per week, that includes, walking, and chair exercises. . Instructed importance of drinking adequate water consumption (if not on fluid restriction) with minimal sugar and caffiene. Elevated hematocrit Await lab Abnormal mammogram - Bilateral screening mammogram; Future Await results Adjustment disorder with anxiety ([facility]) This condition has resolved Allergic rhinitis, unspecified seasonality, unspecified trigger This is a chronic medical condition that is stable since last assessment. No changes in treatment are suggested at this time. Cyst of skin This condition has resolved Estrogen deficiency This is a chronic medical condition that is stable since last assessment. No changes in treatment are suggested at this time. Other fatigue - Vitamin D 25 hydroxy; Future - Comprehensive metabolic panel; Future This is a chronic medical condition that is stable since last assessment. No changes in treatment are suggested at this time. Former smoker - CT lung screening low dose; Future Await results of CT scan Hair loss This is a chronic medical condition that is stable since last assessment. No changes in treatment are suggested at this time. Hypercalcemia - Comprehensive metabolic panel; Future Await lab Lack of motivation - Vitamin D 25 hydroxy; Future Await lab Personal history of smoking - Lipid panel; Future Await lab Screening for hyperlipidemia - Lipid panel; Future Await lab Seasonal allergies This is a chronic medical condition that is stable since last assessment. No changes in treatment are suggested at this time. Thoracic outlet syndrome This is a chronic medical condition that is stable since last assessment. No changes in treatment are suggested at this time. Encounter for screening mammogram for malignant neoplasm of breast - Bilateral screening mammogram; Future Await results No follow-ups on file. documented in this encounter [facility] 02-14-2024 History of Present illness Narrative Associated Problem(s): Fatigue Consider Sleep Apnea Associated Problem(s): Essential hypertension (CMS/HCC) Our specific goals, for your hypertension, is to keep your blood pressure less than 140/90, and the importance of weight control. We made recommendations on how to control your blood pressure, and minimize your risk of these copmplications. We also discussed your current barriers to a healthy living and importance of healthy diet and exercise. Prior to your visit today we have reviewed your chart and formed a plan to assist with providing you the best possible care. We reviewed the possible complications of hypertension including, stroke, heart failure and kidney impairment. In addition, we discussed your medications, the importance of taking them as prescribed. DASH diet handouts Images from the original note were not included. Subjective Patient ID: Maribel Swift is a 68 y.o. female who presents for Hypertension. Pt has no concerns Hypertension This is a chronic problem. The current episode started more than 1 year ago. The problem is unchanged. The problem is controlled. Pertinent negatives include no anxiety, chest pain, headaches or shortness of breath. (Sob and she stops breathing. When she was a kid would stop breathing. No exertional CP or SOB) There are no associated agents to hypertension. There are no known risk factors for coronary artery disease. Past treatments include MATESU inhibitors and diuretics. The current treatment provides mild improvement. There is no history of chronic renal disease or coarctation of the aorta. Current Outpatient Medications on File Prior to Visit Medication Sig Dispense Refill cholecalciferol (Vitamin D-3) 125 MCG (5000 UT) capsule Take 5,000 Units by mouth in the morning. cyanocobalamin (Vitamin B-12) 500 MCG tablet Take 1 tablet by mouth in the morning. fluticasone (Flonase) 50 MCG/ACT nasal spray Administer 1 spray into each nostril in the morning. Shake gently. Before first use, prime pump. After use, clean tip and replace cap.. levothyroxine (Synthroid, Levoxyl) 100 MCG tablet Take 1 tablet by mouth in the morning. Take before meals. omeprazole (PriLOSEC) [address] capsule Take 1 capsule (40 mg) by mouth in the morning. Take before meals. Do not crush or chew.. 90 capsule 3 oxybutynin XL (Ditropan-XL) 10 MG 24 hr tablet Take 10 mg by mouth. spironolactone (Aldactone) 25 MG tablet Take 1 tablet (25 mg) by mouth Daily 30 tablet 11 [DISCONTINUED] buPROPion SR (Wellbutrin SR) 100 MG 12 hr tablet Take 1 tablet (100 mg) by mouth in the morning and 1 tablet (100 mg) before bedtime. Do not crush, chew, or split.. 60 tablet 11 [DISCONTINUED] losartan-hydroCHLOROthiazide (Hyzaar) 100-25 MG tablet Take 1 tablet by mouth Daily 100 tablet 3 No current facility-administered medications on file prior to visit. I have reviewed and reconciled the history and medication list with the patient today. Allergies Allergen Reactions Aspirin Headache Meperidine Unknown Oxycodone Headache Penicillins Rash Social History Tobacco Use Smoking status: Former Current packs/day: 0.00 Types: Cigarettes Quit date: 2011 Years since quittin.8 Smokeless tobacco: Never Substance Use Topics Alcohol use: Yes Comment: Points: 1, Interpretation: Negative Family History Problem Relation Name Age of Onset Alzheimer's disease Mother Past Medical History: Diagnosis Date Anxiety Change in bowel habit Cyst Disease of thyroid gland (CMS/HCC) EBV infection 2019 Edema Gallbladder disease 2005 Hypercalcemia Hypertension (CMS/HCC) Hypothyroidism (CMS/HCC) Screening for lung cancer 10/22/2021 Lung Screening Category 1 Negative Seasonal allergies Thoracic outlet syndrome Past Surgical History: Procedure Laterality Date BI BREAST BIOPSY ( TECHNIQUE PER RADIOLOGY ) 2013 mammogram COLONOSCOPY 2012 DEXA BONE DENSITOMETRY SCAN 2013 DEXA scan HERNIA REPAIR 1993 THYROIDECTOMY 1989 Visit Vitals BP 138/82 Pulse 79 Ht 5' 6 Wt 303 lb SpO2 96% BMI 48.91 kg/m Smoking Status Former BSA 2.53 m Review of Systems Respiratory: Negative for chest tightness and shortness of breath. Cardiovascular: Positive for leg swelling. Negative for chest pain. Musculoskeletal: Positive for joint swelling. Left knee Pain-no Xray Had injury age 22 and injured at work, platform injured knee Neurological: Negative for dizziness, tremors, facial asymmetry, speech difficulty, weakness, light-headedness and headaches. Psychiatric/Behavioral: Negative for behavioral problems, confusion and decreased concentration. Objective Physical Exam Constitutional: Appearance: Normal appearance. She is obese. HENT: Head: Normocephalic. Right Ear: Tympanic membrane normal. Left Ear: Tympanic membrane normal. Nose: Nose normal. Mouth/Throat: Mouth: Mucous membranes are moist. Pharynx: Oropharynx is clear. Eyes: Pupils: Pupils are equal, round, and reactive to light. Cardiovascular: Rate and Rhythm: Normal rate and regular rhythm. Pulses: Normal pulses. Pulmonary: Effort: Pulmonary effort is normal. Breath sounds: Normal breath sounds. Abdominal: General: Bowel sounds are normal. Palpations: Abdomen is soft. Musculoskeletal: Cervical back: Normal range of motion. Right lower leg: Edema present. Left lower leg: Edema present. Skin: General: Skin is warm and dry. Neurological: General: No focal deficit present. Mental Status: She is alert and oriented to person, place, and time. Psychiatric: Mood and Affect: Mood normal. Behavior: Behavior normal. Assessment/Plan Problem List Items Addressed This Visit Essential hypertension (CMS/HCC) Our specific goals, for your hypertension, is to keep your blood pressure less than 140/90, and the importance of weight control. We made recommendations on how to control your blood pressure, and minimize your risk of these copmplications. We also discussed your current barriers to a healthy living and importance of healthy diet and exercise. Prior to your visit today we have reviewed your chart and formed a plan to assist with providing you the best possible care. We reviewed the possible complications of hypertension including, stroke, heart failure and kidney impairment. In addition, we discussed your medications, the importance of taking them as prescribed. DASH diet handouts Relevant Medications losartan-hydroCHLOROthiazide (Hyzaar) 100-25 MG tablet Fatigue Consider Sleep Apnea Relevant Medications buPROPion SR (Wellbutrin SR) 100 MG 12 hr tablet Lack of motivation Relevant Medications buPROPion SR (Wellbutrin SR) 100 MG 12 hr tablet Daytime somnolence - Primary Follow up in about 4 months (around 06/13/2024) for Hypertension. documented in this encounter [facility] 05-05-2023 History of Present illness Narrative Subjective Patient ID: Maribel Swift is a 67 y.o. female who presents for a Medicare Wellness Visit. Maribel is present today for a Medicare Wellness Visit. Current Outpatient Medications on File Prior to Visit Medication Sig Dispense Refill buPROPion SR (Wellbutrin SR) 100 MG 12 hr tablet Take 1 tablet (100 mg) by mouth in the morning and 1 tablet (100 mg) before bedtime. Do not crush, chew, or split.. 60 tablet 11 cholecalciferol (Vitamin D-3) 125 MCG (5000 UT) capsule Take 5,000 Units by mouth in the morning. cyanocobalamin (Vitamin B-12) 500 MCG tablet Take 1 tablet by mouth in the morning. fluticasone (Flonase) 50 MCG/ACT nasal spray Administer 1 spray into each nostril in the morning. Shake gently. Before first use, prime pump. After use, clean tip and replace cap.. furosemide (Lasix) 20 MG tablet Take 1 tablet (20 mg) by mouth in the morning and 1 tablet (20 mg) before bedtime. 60 tablet 11 levothyroxine (Synthroid, Levoxyl) 100 MCG tablet Take 1 tablet by mouth in the morning. Take before meals. losartan-hydroCHLOROthiazide (Hyzaar) 100-25 MG tablet Take 1 tablet by mouth in the morning. 360 tablet 0 oxybutynin XL (Ditropan-XL) 10 MG 24 hr tablet Take 10 mg by mouth. No current facility-administered medications on file prior to visit. Allergies Allergen Reactions Aspirin Headache Meperidine Unknown Oxycodone Headache Penicillins Rash Social History Tobacco Use Smoking status: Former Packs/day: 1.5 Types: Cigarettes Quit date: 2011 Years since quittin.0 Smokeless tobacco: Never Substance Use Topics Alcohol use: Yes Comment: Points: 1, Interpretation: Negative Family History Problem Relation Name Age of Onset Alzheimer's disease Mother Past Medical History: Diagnosis Date Anxiety Change in bowel habit Cyst Disease of thyroid gland ([facility]) EBV infection 2018 Edema Gallbladder disease 2005 Hypercalcemia Hypertension ([facility]/HCC) Hypothyroidism ([facility]) Screening for lung cancer 10/22/2021 Lung Screening Category 1 Negative Seasonal allergies Thoracic outlet syndrome Past Surgical History: Procedure Laterality Date BI BREAST BIOPSY ( TECHNIQUE PER RADIOLOGY ) 2013 mammogram COLONOSCOPY 2012 DEXA BONE DENSITOMETRY SCAN 2013 DEXA scan HERNIA REPAIR 1993 THYROIDECTOMY 1989 Visit Vitals Smoking Status Former Review of Systems Constitutional: Negative. HENT: Negative. Eyes: Negative. Respiratory: Negative. Cardiovascular: Negative. Gastrointestinal: Negative. Genitourinary: Negative. Musculoskeletal: Negative. Neurological: Negative. Psychiatric/Behavioral: Negative. Hematological: Negative. Endocrine: Negative. Objective Physical Exam Constitutional: Appearance: Normal appearance. She is obese. HENT: Head: Normocephalic. Right Ear: Tympanic membrane normal. Left Ear: Tympanic membrane normal. Nose: Nose normal. Mouth/Throat: Mouth: Mucous membranes are moist. Pharynx: Oropharynx is clear. Eyes: Pupils: Pupils are equal, round, and reactive to light. Cardiovascular: Rate and Rhythm: Normal rate and regular rhythm. Pulses: Normal pulses. Pulmonary: Effort: Pulmonary effort is normal. Breath sounds: Normal breath sounds. Abdominal: General: Bowel sounds are normal. Palpations: Abdomen is soft. Musculoskeletal: Cervical back: Normal range of motion. Right lower leg: Edema present. Left lower leg: Edema present. Skin: General: Skin is warm and dry. Neurological: General: No focal deficit present. Mental Status: She is alert and oriented to person, place, and time. Psychiatric: Mood and Affect: Mood normal. Behavior: Behavior normal. Assessment/Plan Diagnoses and all orders for this visit: Medicare annual wellness visit, subsequent - CBC; Future - Lipid panel; Future Reviewed all relevant preventative screenings with the patient in detail. Medicare Wellness form completed and will be scanned into patient's chart. All needed testing was ordered. Will continue with yearly Medicare Wellness exams. Calcification of coronary artery ([facility]) This is a chronic medical condition that is stable since last assessment. No changes in treatment are suggested at this time. Essential hypertension ([facility]) - CBC; Future - Comprehensive metabolic panel; Future Patient's blood pressure is currently well controlled. Continue with current medications and I will continue to monitor. Goal BP remains less than 130/80. OAB (overactive bladder) This is a chronic medical condition that is stable since last assessment. No changes in treatment are suggested at this time. Improved with medication Bilateral edema of lower extremity This is a chronic medical condition that is stable since last assessment. No changes in treatment are suggested at this time. Leg cramps This is a chronic medical condition that is stable since last assessment. No changes in treatment are suggested at this time. Acquired hypothyroidism ([facility]) - Comprehensive metabolic panel; Future - TSH; Future This is a chronic medical condition that is stable since last assessment. No changes in treatment are suggested at this time. Adult BMI 45.0-49.9 kg/sq m ([facility]) Discussed goal of BMI < 30. Advised on weight loss options. Encouraged diet and exercise. Discussed with patient appropriate lifestyle modification changes necessary for weight management, heart healthy eating and overall health promotion. Discussed minimizing high carb, high sugar, high sodium, portion control, and processed foods while making healthy choice replacements. Additionally discussed recommendations of 30 minutes of aerobic exercise at least 5 days per week, that includes, walking, and chair exercises. . Instructed importance of drinking adequate water consumption (if not on fluid restriction) with minimal sugar and caffiene. Morbid obesity due to excess calories ([facility]) Discussed goal of BMI < 30. Advised on weight loss options. Encouraged diet and exercise. Discussed with patient appropriate lifestyle modification changes necessary for weight management, heart healthy eating and overall health promotion. Discussed minimizing high carb, high sugar, high sodium, portion control, and processed foods while making healthy choice replacements. Additionally discussed recommendations of 30 minutes of aerobic exercise at least 5 days per week, that includes, walking, and chair exercises. . Instructed importance of drinking adequate water consumption (if not on fluid restriction) with minimal sugar and caffiene. Severe obesity (BMI >= 40) ([facility]) Discussed goal of BMI < 30. Advised on weight loss options. Encouraged diet and exercise. Discussed with patient appropriate lifestyle modification changes necessary for weight management, heart healthy eating and overall health promotion. Discussed minimizing high carb, high sugar, high sodium, portion control, and processed foods while making healthy choice replacements. Additionally discussed recommendations of 30 minutes of aerobic exercise at least 5 days per week, that includes, walking, and chair exercises. . Instructed importance of drinking adequate water consumption (if not on fluid restriction) with minimal sugar and caffiene. Adjustment disorder with anxiety (CMS/HCC) Medication as directed. Counseling recommended. Verbalizes understanding of the need to be seen in the ER for suicidal/homicidal ideation, excessive stress, elevated blood pressure or palpitations. Pt offers understanding of treatment plan. I discussed the side effects of the medications described and to seek medical care if they arise. Discussed stress mgmt strategies, social support and importance of healthy diet, exercise and regular sleep habits. Advised on relaxation methods to decrease anxiety and depression. Allergic rhinitis, unspecified seasonality, unspecified trigger - CBC; Future This is a chronic medical condition that is stable since last assessment. No changes in treatment are suggested at this time. Estrogen deficiency This is a chronic medical condition that is stable since last assessment. No changes in treatment are suggested at this time. Hypercalcemia - Comprehensive metabolic panel; Future - Vitamin D 25 hydroxy; Future This is a chronic medical condition that is stable since last assessment. No changes in treatment are suggested at this time. Screening for hyperlipidemia - Lipid panel; Future Await lab Thoracic outlet syndrome This is a chronic medical condition that is stable since last assessment. No changes in treatment are suggested at this time. Former smoker - CT lung screening low dose; Future Await CT scan Vitamin B12 deficiency - Vitamin B12; Future Await lab Vitamin D deficiency - Vitamin D 25 hydroxy; Future Await lab Gastroesophageal reflux disease without esophagitis - omeprazole (PriLOSEC) [address] capsule; Take 1 capsule (40 mg) by mouth in the morning. Take before meals. Do not crush or chew.. GERD discussed with the patient. Pt educated regarding avoiding high acid food triggers such as caffeine products, fruits high in acid, spicy foods, and tomato based products. Advsied to avoid all NSAIDS medications, i.e. Motrin, Aleve. Ok to use Tylenol prn. Encouraged pt to avoid laying down immediately after meals. No follow-ups on file. documented in this encounter [facility] 01-20-2023 Hospital Discharge instructions Follow Up Care 01/20/2023 14:25:55 With:DEX KATE Stephanie Fred Address: [address] [place] [address]- When:Within 6 Month(s) [facility] 01-20-2023 Hospital Discharge instructions Patient Education 01/20/2023 14:09:37 Fall Prevention in the Home, Adult, [id number] Fall Prevention in the Home, Adult Falls can cause injuries and can happen to people of all ages. There are many things you can do to make your home safe and to help prevent falls. Ask for help when making these changes. What actions can I take to prevent falls? General Instructions Use good lighting in all rooms. Replace any light bulbs that burn out. Turn on the lights in dark areas. Use night-lights. Keep items that you use often in [id number] places. Lower the shelves around your home if needed. Set up your furniture so you have a clear path. Avoid moving your furniture around. Do not have throw rugs or other things on the floor that can make you trip. Avoid walking on wet floors. If any of your floors are uneven, fix them. Add color or contrast paint or tape to clearly dena and help you see: ?Grab bars or handrails. ?First and last steps of staircases. ?Where the edge of each step is. If you use a stepladder: ?Make sure that it is fully opened. Do not climb a closed stepladder. ?Make sure the sides of the stepladder are locked in place. ?Ask someone to hold the stepladder while you use it. Know where your pets are when moving through your home. What can I do in the bathroom? Keep the floor dry. Clean up any water on the floor right away. Remove soap buildup in the tub or shower. Use nonskid mats or decals on the floor of the tub or shower. Attach bath mats securely with double-sided, nonslip rug tape. If you need to sit down in the shower, use a plastic, nonslip stool. Install grab bars by the toilet and in the tub and shower. Do not use towel bars as grab bars. What can I do in the bedroom? Make sure that you have a light by your bed that is easy to reach. Do not use any sheets or blankets for your bed that hang to the floor. Have a firm chair with side arms that you can use for support when you get dressed. What can I do in the kitchen? Clean up any spills right away. If you need to reach something above you, use a step stool with a grab bar. Keep electrical cords out of the way. Do not use floor ukrainian or wax that makes floors slippery. What can I do with my stairs? Do not leave any items on the stairs. Make sure that you have a light switch at the top and the bottom of the stairs. Make sure that there are handrails on both sides of the stairs. Fix handrails that are broken or loose. Install nonslip stair treads on all your stairs. Avoid having throw rugs at the top or bottom of the stairs. Choose a carpet that does not hide the edge of the steps on the stairs. Check carpeting to make sure that it is firmly attached to the stairs. Fix carpet that is loose or worn. What can I do on the outside of my home? Use bright outdoor lighting. Fix the edges of walkways and driveways and fix any cracks. Remove anything that might make you trip as you walk through a door, such as a raised step or threshold. Trim any bushes or trees on paths to your home. Check to see if handrails are loose or broken and that both sides of all steps have handrails. Install guardrails along the edges of any raised decks and porches. Clear paths of anything that can make you trip, such as tools or rocks. Have leaves, snow, or ice cleared regularly. Use sand or salt on paths during winter. Clean up any spills in your garage right away. This includes grease or oil spills. What other actions can I take? Wear shoes that: ?Have a low heel. Do not wear high heels. ?Have rubber bottoms. ?Feel good on your feet and fit well. ?Are closed at the toe. Do not wear open-toe sandals. Use tools that help you move around if needed. These include: ?Canes. ?Walkers. ?Scooters. ?Crutches. Review your medicines with your doctor. Some medicines can make you feel dizzy. This can increase your chance of falling. Ask your doctor what else you can do to help prevent falls. Where to find more information Centers for Disease Control and Prevention, [employer]: www.cdc.gov [employer] [place] on Aging: www.nuvia.nih.gov Contact a doctor if: You are afraid of falling at home. You feel weak, drowsy, or dizzy at home. You fall at home. Summary There are many simple things that you can do to make your home safe and to help prevent falls. Ways to make your home safe include removing things that can make you trip and installing grab bars in the bathroom. Ask for help when making these changes in your home. This information is not intended to replace advice given to you by your health care provider. Make sure you discuss any questions you have with your health care provider. Document Revised: 12/21/2021 Document Reviewed: 10/22/2020 [employer] Patient Education 2022 [employer]. 01/20/2023 14:09:10 Obesity, Adult, [id number] Obesity, Adult Obesity is having too much body fat. Being obese means that your weight is more than what is healthy for you. BMI (body mass index) is a number that explains how much body fat you have. If you have a BMI of 30 or more, you are obese. Obesity can cause serious health problems, such as: Stroke. Coronary artery disease (CAD). Type 2 diabetes. Some types of cancer. High blood pressure (hypertension). High cholesterol. Gallbladder stones. Obesity can also contribute to: Osteoarthritis. Sleep apnea. Infertility problems. What are the causes? Eating meals each day that are high in calories, sugar, and fat. Drinking a lot of drinks that have sugar in them. Being born with genes that may make you more likely to become obese. Having a medical condition that causes obesity. Taking certain medicines. Sitting a lot (having a sedentary lifestyle). Not getting enough sleep. What increases the risk? Having a family history of obesity. Living in an area with limited access to: ?Shook, recreation centers, or sidewalks. ?Healthy food choices, such as grocery stores and farmers' markets. What are the signs or symptoms? The main sign is having too much body fat. How is this treated? Treatment for this condition often includes changing your lifestyle. Treatment may include: Changing your diet. This may include making a healthy meal plan. Exercise. This may include activity that causes your heart to beat faster (aerobic exercise) and strength training. Work with your doctor to design a program that works for you. Medicine to help you lose weight. This may be used if you are not able to lose one pound a week after 6 weeks of healthy eating and more exercise. Treating conditions that cause the obesity. Surgery. Options may include gastric banding and gastric bypass. This may be done if: ?Other treatments have not helped to improve your condition. ?You have a BMI of 40 or higher. ?You have life-threatening health problems related to obesity. Follow these instructions at home: Eating and drinking Follow advice from your doctor about what to eat and drink. Your doctor may tell you to: ?Limit fast food, sweets, and processed snack foods. ?Choose low-fat options. For example, choose low-fat milk instead of whole milk. ?Eat five or more servings of fruits or vegetables each day. ?Eat at home more often. This gives you more control over what you eat. ?Choose healthy foods when you eat out. ?Learn to read food labels. This will help you learn how much food is in one serving. ?Keep low-fat snacks available. ?Avoid drinks that have a lot of sugar in them. These include soda, fruit juice, iced tea with sugar, and flavored milk. Drink enough water to keep your pee (urine) pale yellow. Do not go on fad diets. Physical activity Exercise often, as told by your doctor. Most adults should get up to 150 minutes of moderate-intensity exercise every week.Ask your doctor: ?What types of exercise are safe for you. ?How often you should exercise. Warm up and stretch before being active. Do slow stretching after being active (cool down). Rest between times of being active. Lifestyle Work with your doctor and a food expert (dietitian) to set a weight-loss goal that is best for you. Limit your screen time. Find ways to reward yourself that do not involve food. Do not drink alcohol if: ?Your doctor tells you not to drink. ?You are , may be , or are planning to become . If you drink alcohol: ?Limit how much you have to: ?0 1 drink a day for women. ?0 2 drinks a day for men. ?Know how much alcohol is in your drink. In the [place] one drink equals one 12 oz bottle of beer (355 mL), one 5 oz glass of wine (148 mL), or one 1 oz glass of hard liquor (44 mL). General instructions Keep a weight-loss journal. This can help you keep track of: ?The food that you eat. ?How much exercise you get. Take [id number] and prescription medicines only as told by your doctor. Take vitamins and supplements only as told by your doctor. Think about joining a support group. Pay attention to your mental health as obesity can lead to depression or self esteem issues. Keep all follow-up visits. Contact a doctor if: You cannot meet your weight-loss goal after you have changed your diet and lifestyle for 6 weeks. You are having trouble breathing. Summary Obesity is having too much body fat. Being obese means that your weight is more than what is healthy for you. Work with your doctor to set a weight-loss goal. Get regular exercise as told by your doctor. This information is not intended to replace advice given to you by your health care provider. Make sure you discuss any questions you have with your health care provider. Document Revised: 10/27/2021 Document Reviewed: 10/27/2021 [employer] Patient Education 2022 [employer]. Follow Up Care 11/25/2022 15:01:17 With:Stephanie KOWALSKI CNP Address: [address] [place] [phone]- When:Within 10 Month(s) [facility] 10-21-2022 Hospital Discharge instructions Follow Up Care 10/21/2022 10:56:09 With:Stephanie KOWALSKI CNP Address: [address] [place] [phone]- When:Within 8 Week(s) [facility] Evaluation + Plan note Future Appointments Appointment Date:08/27/2021 09:20:00 AM Scheduled Provider:Kelli Nicole NP Location:[facility] Appointment Type:[facility] Scheduled TestsComprehensive Metabolic Panel 09/08/20Lipid Panel 09/08/20 [facility] Evaluation + Plan note Future Appointments Appointment Date:11/17/2022 10:40:00 AM Scheduled Provider:Kelli Nicole NP Location:[facility] Appointment Type[facility] Evaluation + Plan note Future Appointments Appointment Date:01/20/2023 02:00:00 PM Scheduled Provider:Setphanie KOWALSKI CNP Location:[facility] Appointment Type:[facility] Evaluation + Plan note Future Appointments Appointment Date:11/22/2023 02:00:00 PM Scheduled Provider:Stephanie KOWALSKI CNP Location:[facility] Appointment Type:[facility] Evaluation note Diagnosis Medicare annual wellness visit, subsequent- Primary Calcification of coronary artery ([facility]/HCC) Essential hypertension (CMS/HCC) Unspecified essential hypertension OAB (overactive bladder) Bilateral edema of lower extremity Leg cramps Cramp of limb Acquired hypothyroidism (CMS/HCC) Unspecified hypothyroidism Adult BMI 45.0-49.9 kg/sq m (CMS/HCC) Morbid obesity due to excess calories (CMS/HCC) Severe obesity (BMI >= 40) (CMS/HCC) Adjustment disorder with anxiety (CMS/HCC) Adjustment disorder with anxiety Allergic rhinitis, unspecified seasonality, unspecified trigger Estrogen deficiency Other ovarian failure Hypercalcemia Screening for hyperlipidemia Screening for lipoid disorders Thoracic outlet syndrome Brachial plexus lesions Former smoker Personal history of tobacco use, presenting hazards to health Vitamin B12 deficiency Other B-complex deficiencies Vitamin D deficiency Gastroesophageal reflux disease without esophagitis Esophageal reflux Routine general medical examination at health care facility Routine general medical examination at a health care facility documented [facility] Diagnosis Essential hypertension (CMS/HCC)- Primary Unspecified essential hypertension Acquired hypothyroidism (CMS/HCC) Unspecified hypothyroidism Morbid obesity due to excess calories (CMS/HCC) Essential hypertension (CMS/HCC)- Primary Unspecified essential hypertension Morbid obesity due to excess calories (CMS/HCC) Other fatigue Lack of motivation Bilateral edema of lower extremity Essential hypertension (CMS/HCC)- Primary Unspecified essential hypertension Bilateral edema of lower extremity Elevated CO2 level Elevated hematocrit Daytime somnolence- Primary Essential hypertension (CMS/HCC) Unspecified essential hypertension Other fatigue Lack of motivation [facility] Diagnosis Essential hypertension (CMS/HCC)- Primary Unspecified essential hypertension Acquired hypothyroidism (CMS/HCC) Unspecified hypothyroidism Morbid obesity due to excess calories (CMS/HCC) Essential hypertension (CMS/HCC)- Primary Unspecified essential hypertension Morbid obesity due to excess calories (CMS/HCC) Other fatigue Lack of motivation Bilateral edema of lower extremity Essential hypertension (CMS/HCC)- Primary Unspecified essential hypertension Bilateral edema of lower extremity Elevated CO2 level Elevated hematocrit Daytime somnolence- Primary Essential hypertension (CMS/HCC) Unspecified essential hypertension Other fatigue Lack of motivation Medicare annual wellness visit, subsequent- Primary Routine general medical examination at health care facility Routine general medical examination at a health care facility Daytime somnolence Calcification of coronary artery (CMS/HCC) Essential hypertension (CMS/HCC) Unspecified essential hypertension OAB (overactive bladder) Bilateral edema of lower extremity Leg cramps Cramp of limb Myalgia Unspecified myalgia and myositis Myopathy Unspecified myopathy Acquired hypothyroidism (CMS/HCC) Unspecified hypothyroidism Adult BMI 45.0-49.9 kg/sq m (CMS/HCC) Morbid obesity due to excess calories (CMS/HCC) Severe obesity (BMI >= 40) (CMS/HCC) Elevated hematocrit Abnormal mammogram Abnormal mammogram, unspecified Adjustment disorder with anxiety (CMS/HCC) Adjustment disorder with anxiety Allergic rhinitis, unspecified seasonality, unspecified trigger Cyst of skin Sebaceous cyst Estrogen deficiency Other ovarian failure Other fatigue Former smoker Personal history of tobacco use, presenting hazards to health Hair loss Unspecified alopecia Hypercalcemia Lack of motivation Personal history of smoking Personal history of tobacco use, presenting hazards to health Screening for hyperlipidemia Screening for lipoid disorders Seasonal allergies Allergic rhinitis, cause unspecified Thoracic outlet syndrome Brachial plexus lesions Encounter for screening mammogram for malignant neoplasm of breast documented in this encounter [facility] Narrative No data available for this section [facility] Discharge instructions No data available for this section [facility] Progress note No data available for this section [facility] Summary Purpose Family History No Family History Records FoundNo Family History Records Found No data available for this section No data available for this section No data available for this section No Family History Records FoundNo Family History Records FoundNo Family History Records FoundNo Family History Records FoundNo Family History Records Found Advance Directives No Advanced Directives Records FoundDocuments on File Type Date Recorded Patient Mobile Equipment Servicer Expl anation Advance Directives and Living Will Power of Food And Drug Inspector Assessments Diagnosis Women's annual routine gynecological examination Reason for Referral Specialty Diagnoses / Procedures Referred By Noreen cooper Referred To Contact Radiology Diagnoses Former smoker Procedures CT lung screening low dose Shereen Pressley, LAUNDRY HELPER [address] [address] Referral ID Status Reason Start Date Expiration Date V isits Requested Visits Authorized [id number] Pending Review 05/05/2023 11/01/2023 1 1 Additional Source Comments INFORMATION SOURCE (unrecogn ized section and content) DATE CREATED AUTHOR 01/17/2019 [facility] DATE CREATED AUTHOR AUTHOR'S ORGANIZ ATION 05/13/2022 [facility] DATE CREATED AUTHOR AUTHOR'S ORGANIZ ATION 11/24/2023 [facility] DATE CREATED AUTHOR AUTHOR'S ORGANIZ ATION 11/30/2023 [facility] DATE CREATED AUTHOR AUTHOR'S ORGANIZ ATION 05/12/2024 [facility] EPIC Patient Care team informatio n (unrecognized section and content) Online Media Director Relationship Specialty Start Date End Date Monica Gudino MD [address] [facility] [address] [place] [address] PCP - [employer] 04/04/22 Monica Gudino MD [address] [facility] [address] [place] [address] PCP - General Family Medicine 09/08/22 Online Media Director Relationship Specialty Start Date End Date Monica Gudino MD [address] [facility] [address] [place] [address] PCP - General Family Medicine 09/08/22 Alfredo Ramirez MD [address] [facility] [address] [place] [address] PCP - [employer] 04/04/22 Online Media Director Relationship Specialty Start Date End Date Monica Gudino MD [address] [facility] [address] [place] [address] PCP - General Family Medicine 09/08/22 Monica Gudino MD [address] [facility] [address] [place] [address] PCP - [employer] 04/04/22 Online Media Director Relationship Specialty Start Date End Date Monica Gudino MD [address] [facility] [address] [place] [address] PCP - General Family Medicine 09/08/22 Monica Gudino MD [address] [facility] [address] [place] [address] PCP - [employer] 04/04/22 Reason for Visit (unrecogniz ed section and content) Reason Comments Hypertension FOR RECORDS PERTAINING TO PATIENTS WHO ARE OR HAVE BEEN ENROLLED IN A CHEMICAL DEPENDENCY/SUBSTANCEABUSE PROGRAM, SOME INFORMATION MAY BE OMITTED. This clinical summary was aggregated from multiple sources. Caution should be exercised in using it in the provision of clinical care. This summary normalizes information from multiple sources, and as a consequence, information in this document may materially change the coding, format and clinical context of patient data. In addition, data may be omitted in some cases. CLINICAL DECISIONS SHOULD BE BASED ON THE PRIMARY CLINICAL RECORDS. [employer] [facility]. provides no warranty or guarantee of the accuracy or completeness of information in this document.
== END 2024-05-28 12:50 | disposition home or self-care (01) ==
LOC: CT 12:49
PROVIDERS: PCP Family Medicine; Visit Provider Nurse Practitioner Family
DX: Z00.00 Encounter for general adult medical examination without abnormal findings (principal); Z87.891 Personal history of nicotine dependence; Z12.31 Encounter for screening mammogram for malignant neoplasm of breast; Z80.3 Family history of malignant neoplasm of breast; Z80.1 Family history of malignant neoplasm of trachea, bronchus and lung; Z80.8 Family history of malignant neoplasm of other organs or systems
CPT/HCPCS: 71271; 77063; 77067